=== PATIENT | female | born 1995 | race African-American/Black ===

== ENCOUNTER 2016-11-30 11:11 | Inpatient (IN) | payer MEDICAID ==
[2016-11-30] MEDS ORDERED: RINGERS SOLUTION,LACTATED 1,000 ML IV ONE (11:41)
[2016-11-30] MEDS ORDERED: RINGERS SOLUTION,LACTATED 1,000 ML IV PRN (11:41)
[2016-11-30 11:42] LABS: APPEARANCE,URINE CLOUDY; BILIRUBIN,URINE NEGATIVE (NEGATIVE); GLUCOSE, URINE NEGATIVE (NEGATIVE); KETONES,URINE NEGATIVE (NEGATIVE); LEUKOCYTE ESTERASE,URINE LARGE (NEGATIVE); NITRITE,URINE NEGATIVE (NEGATIVE); PROTEIN,URINE NEGATIVE (NEGATIVE); URINE SPECIFIC GRAVITY 1.011; UROBILINOGEN,URINE NEGATIVE mg/dL (<2.0)
--- NOTE | 2016-11-30 12:01 | L&D Flow Sheet ---
LD Flowsheet Datetime Report Generated by CPN: 11/30/2016 12:00 Datetime: 11/30/2016 11:58 Patient Care IV/Blood Work: IV Started; IV Bolus Started (Leroy Sky, RN) Patient Care Comments: LR; 18G L FA good blood return, pt tolerated well. (Leroy Spanglert, RN) Datetime: 11/30/2016 11:56 Patient Position/Activity: Left Tilt (Leroy Jose Daniel, RN) Datetime: 11/30/2016 11:53 Patient Care IV/Blood Work: Labs Drawn (Leroy Jose Daniel, RN) Datetime: 11/30/2016 11:43 Vital Signs NBP Sys/Francesca/Mean (mmHg): 132 (QS system process) : 82 (QS system process) : 101 (QS system process) Pulse: 82 (QS system process) Datetime: 11/30/2016 11:29 Vaginal Exam Dilatation (cm): 4.0 (Leroy Jose Daniel, RN) Effacement (%): 50 (Leroy Jose Daniel, RN) Station: -3 (Leroy Jose Daniel, RN) Exam by: S Jose Daniel RN (Leroy Jose Daniel, RN) Communication Communication Comments: H Sandeep CNM reviewed strip, notified of pt hx, labs, ve, vs. States to watch pt for an hour and recheck pt (Leroy Jose Daniel, RN) Datetime: 11/30/2016 11:27 Vital Signs NBP Sys/Francesca/Mean (mmHg): 138 (QS system process) : 80 (QS system process) : 104 (QS system process) Pulse: 102 (QS system process)
[2016-11-30 12:05] LABS: URINE BARBITURATES SCREEN NEGATIVE; URINE METHADONE SCREEN NEGATIVE; URINE OPIATES LOW NEGATIVE; URINE PHENCYCLIDINE SCREEN NEGATIVE
[2016-11-30 12:15] LABS: ABSOLUTE EOSINOPHILS # (AUTO) 0.2 10^3/uL (0.0-0.6); ABSOLUTE LYMPHOCYTES (AUTO) 1.8 10^3/uL (0.5-4.7); ABSOLUTE MONOCYTES (AUTO) 0.6 10^3/uL (0.1-1.4); ABSOLUTE NEUT (AUTO) 4.4 10^3/uL (1.7-8.2); BASOPHILS % (AUTO) 0.2 % (0-2); EOSINOPHILS % (AUTO) 2.2 % (0-6); HEMATOCRIT 33.9 % (36.0-47.0); HEMOGLOBIN 11.1 g/dL (12.0-15.5); HGB HCT DIFFERENCE -0.6; LYMPHOCYTES % (AUTO) 25.3 % (13-45); MEAN CORPUSCULAR HGB CONC 32.8 g/dL (32.0-36.0); MEAN CORPUSCULAR VOLUME 86 fl (80-97); MONOCYTES % (AUTO) 8.7 % (3-13); RED BLOOD COUNT 3.96 10^6/uL (3.72-5.28); RED CELL DISTRIBUTION WIDTH 13.7 % (11.5-14.0); SEGMENTED NEUTROPHILS % (AUTO) 63.6 % (42-78)
[2016-11-30] MEDS ORDERED: FENTANYL/BUPIVACAINE/NS/PF 0 MCG/0 ML RTUINJ EPI ONE (12:32)
[2016-11-30] MEDS ORDERED: EPHEDRINE SULFATE INJ 50 MG/1 ML AMPULE ONE (12:32)
[2016-11-30] MEDS ORDERED: BUPIVACAINE HCL 0.25 % INJ/PF (2.5 MG/1 ML) 30 ML VIAL ONE (12:33)
--- NOTE | 2016-11-30 14:01 | L&D Flow Sheet ---
LD Flowsheet Datetime Report Generated by CPN: 11/30/2016 14:00 Datetime: 11/30/2016 13:59 NBP Sys/Francesca/Mean (mmHg): 127 (QS system process) : 61 (QS system process) : 87 (QS system process) Pulse: 88 (QS system process) Datetime: 11/30/2016 13:45 Stage of : Recovery (Leroy Sky, RN) Respirations: 16 (Leroy Sky RN) Pain Scale: 1 (Leroy Jose Daniel, RN) Pain Presence: Constant (Leroy Ingiuezfleet, RN) Pain Type: Ache (Leroy Jose Daniel, RN) Pain Location: Abdomen (Leroy Jose Daniel, RN) Pain Relief Measures: Comfort Measures (Leroy Jose Daniel, RN) Datetime: 11/30/2016 13:44 NBP Sys/Francesca/Mean (mmHg): 132 (QS system process) : 68 (QS system process) : 93 (QS system process) Pulse: 88 (QS system process) Datetime: 11/30/2016 13:27 NBP Sys/Francesca/Mean (mmHg): 141 (QS system process) : 69 (QS system process) : 96 (QS system process) Pulse: 106 (QS system process) Datetime: 11/30/2016 13:25 NBP Sys/Francesca/Mean (mmHg): 129 (QS system process) : 69 (QS system process) : 95 (QS system process) Pulse: 93 (QS system process) Datetime: 11/30/2016 13:17 Dilatation (cm): 10.0 (Leroy Sky RN) Effacement (%): 100 (Leroy Sky RN) Station: 1 (Leroy Sky RN) Exam by: Deanna Hopkins (Leroy Sky RN) Pushing: Coached on Pushing; Urge to Push (Leroy Sky RN) Pushing Position: Pushing with Contractions (Leroy Sky RN) Communication: RN at Bedside; Provider at Bedside (Leroy Sky RN) Communication Comments: RN and Deanna Hopkins CNM to remain present at bedside throughout second stage continuously monitoring heart rate while pt pushes with contractions (Leroy Sky RN) Datetime: 11/30/2016 13:15 Pushing: Urge to Push (Leroy Bautistaeet, RN) Preparation for Delivery: Setup for Delivery (Leroy Iniguezfleet, RN) Datetime: 11/30/2016 13:13 Dilatation (cm): 8.0 (Leroy Spanglert, RN) Effacement (%): 90 (Leroy Sky, RN) Station: -1 (Leroy Sky, RN) Exam by: Deanna Hopkins CNAdelia (Leroy Sky, RN) Membrane Status: Ruptured (Leroy Sky, RN) Membranes Rupture Method: Artificial (Leroy Iniguezfleet, RN) Amniotic Fluid Color: Clear (Leroy Iniguezfleet, RN) Amniotic Fluid Amount: Small (Leroy Jose Daniel, RN) Datetime: 11/30/2016 13:12 NBP Sys/Francesca/Mean (mmHg): 141 (QS system process) : 85 (QS system process) : 106 (QS system process) Pulse: 102 (QS system process) Communication Comments: H Sandeep at bedside (Leroy Sky, RN) Datetime: 11/30/2016 13:11 Communication Comments: H Sandeep CNM at bedside, remains at bedside (Leroy Sky, RN) Datetime: 11/30/2016 13:00 Pulse: 88 (QS system process) SpO2 (%): 79 (QS system process) Monitor Mode: External; Palpation (Leroy Sky RN) Frequency (min): 2-3 (Leroy Sky RN) Quality: Moderate to Strong (Leroy Sky RN) Duration (sec): 60-80 (Leroy Sky RN) Duration Criteria: Less than Two 120 Second Contractions (Leroy Sky RN) Pattern: Normal: <= 5 Contractions in 10 Minutes (Leroy Sky RN) Resting Tone (Palpate): Relaxed (Leroy Sky, RN) Monitor Mode: External US (Leroy Sky, RN) FHR Baseline Rate : 135 (Leroy Spanglert, RN) Variability: Moderate 6-25 bpm (Leroy Iniguezfleet, RN) Accelerations: 15X15 (Leroy Iniguezfleet, RN) Decelerations: Early; Late (Leroy Spanglert, RN) Communication: RN at Bedside; RN Reviewed Strip (Leroy Sky RN) Datetime: 11/30/2016 12:59 Communication Comments: Dr Griffin at bedside to offer pt epidural; pt declines. (Leroy Jose Daniel, RN) Datetime: 11/30/2016 12:57 NBP Sys/Francesca/Mean (mmHg): 139 (QS system process) : 79 (QS system process) : 103 (QS system process) Pulse: 103 (QS system process) Datetime: 11/30/2016 12:48 I/O Interventions: Up to BR (Leroy Jose Daniel, RN) Datetime: 11/30/2016 12:45 Monitor Mode: External; Palpation (Leroy Bautistaeet, RN) Frequency (min): 2-4 (Leroy Jose Daniel, RN) Quality: Moderate (Leroy Jose Daniel, RN) Duration (sec): 60-70 (Leroy Jose Daniel, RN) Duration Criteria: Less than Two 120 Second Contractions (Leroy Jose Daniel, RN) Pattern: Normal: <= 5 Contractions in 10 Minutes (Leroy Jose Daniel, RN) Resting Tone (Palpate): Relaxed (Leroy Jose Daniel, RN) Monitor Mode: External US (Leroy Bautistaeet, RN) FHR Baseline Rate : 135 (Leroy Jose Daniel, RN) Variability: Moderate 6-25 bpm (Leroy Jose Daniel, RN) Accelerations: 15X15 (Leroy Jose Daniel, RN) Decelerations: None (Leroy Jose Daniel, RN) Communication: RN at Bedside; RN Reviewed Strip (Leroy Spanglert, RN) Datetime: 11/30/2016 12:43 Dilatation (cm): 8.0 (Elyse [place], RNC) Effacement (%): 90 (Elyse [place], RNC) Station: -2 (Elyse [place], RNC) Exam by: Julia Sky (Elyse [place], RNC) Vaginal Bleeding: Normal Show (Elyse [place], RNC) Cervix, Consistency: Soft (Elyse [place], RNC) Cervix, Position: Anterior ([facility], RNC) Communication: H Sandeep CNM states pt may have epidural now (Leroy Sky ) Datetime: 11/30/2016 12:42 NBP Sys/Farncesca/Mean (mmHg): 136 (QS system process) : 84 (QS system process) : 104 (QS system process) Pulse: 94 (QS system process) Datetime: 11/30/2016 12:30 Monitor Mode: External; Palpation (Leroy Sky RN) Frequency (min): 3-6 (Leroy Sky RN) Frequency (min): 50-70 (Leroy Sky RN) Quality: Moderate to Strong (Leroy Sky RN) Duration (sec): 50-70 (Leroy Sky RN) Resting Tone (Palpate): Relaxed (Leroy Sky RN) Monitor Mode: External US (Leroy Sky RN) FHR Baseline Rate : 135 (Leroy Sky RN) Variability: Moderate 6-25 bpm (Leroy Sky RN) Accelerations: 15X15 (Leroy Sky RN) Decelerations: None (Leroy Sky RN) Communication: RN at Bedside; RN Reviewed Strip (Leroy Sky RN) Datetime: 11/30/2016 12:27 Pain Scale: 5 (Leroy Sky RN) Pain Type: Contraction (Leroy Sky RN) Pain Coping: Requesting Pain Medication or Epidural (Leroy Sky RN) Dilatation (cm): 6.0 (Leroy Sky RN) Effacement (%): 90 (Leroy Sky RN) Station: -2 (Leroy Sky RN) Exam by: Julia Sky RN (Leroy Sky RN) IV/Blood Work: IV Bolus Started (Annotations: 2nd bag LR for epidural hung) (Leroy Sky RN) Datetime: 11/30/2016 12:15 Monitor Mode: External (Bonnie Iyer RN) Frequency (min): 2.5-4 (Bonnie Iyer RN) Quality: Moderate to Strong (Bonnie Iyer RN) Duration (sec): 70-120 (Bonnie Iyer RN) Resting Tone (Palpate): Relaxed (Bonnie Iyer RN) Monitor Mode: External US (Bonnie Iyer RN) FHR Baseline Rate : 130 (Bonnie Iyer RN) Variability: Moderate 6-25 bpm (Bonnie Iyer, RN) Accelerations: 15X15 (Bonnie Iyer, RN) Decelerations: None (Bonnie Iyer RN) Datetime: 11/30/2016 12:13 NBP Sys/Francesca/Mean (mmHg): 144 (QS system process) : 92 (QS system process) : 111 (QS system process) Pulse: 116 (QS system process) I/O Interventions: Clear Liquids Given (Leroy Sky, RN) Datetime: 11/30/2016 12:11 Patient Position/Activity: Right Lateral (Leroy Sky, RN) Datetime: 11/30/2016 12:07 NBP Sys/Francesca/Mean (mmHg): 133 (QS system process) : 75 (QS system process) : 97 (QS system process) Pulse: 81 (QS system process) Datetime: 11/30/2016 12:03 Procedures: Consents Signed (Leroy Sky RN) Communication Comments: Deanna Hopkins CNAdelia states pt may have epidural when desired. (Leroy Sky RN) Datetime: 11/30/2016 12:00 Monitor Mode: External (Bonnie Iyer RN) Frequency (min): 1.5-3.5 (Bonnie Iyer RN) Quality: Moderate to Strong (Bonnie Iyer RN) Duration (sec): 60-90 (Bonnie Iyer RN) Resting Tone (Palpate): Relaxed (Bonnie Iyer RN) Monitor Mode: External US (Bonnie Iyer RN) FHR Baseline Rate : 125 (Bonnie Iyer RN) Variability: Moderate 6-25 bpm (Bonnie Iyer RN) Accelerations: 15X15 (Bonnie Iyer RN) Decelerations: None (Bonnie Iyer RN)
[2016-11-30] MEDS ORDERED: MEASLES,MUMPS&RUBELLA VACC/PF 0.5 ML VIAL SUBCUT PRN (14:07)
[2016-11-30] MEDS ORDERED: OXYTOCIN/NORMAL SALINE 1,000 ML IV PRN (14:07)
[2016-11-30] MEDS ORDERED: ZOLPIDEM TARTRATE 5 MG TABLET PO PRN (14:07)
[2016-11-30] MEDS ORDERED: BENZOCAINE/MENTHOL AEROSOL SPRAY 56 ML TOP PRN (14:07)
[2016-11-30] MEDS ORDERED: DIPH/PERTUSS(ACELL)/TETANUS VAC/PF 0.5 ML SYR (>=10YO) IM PRN (14:07)
[2016-11-30] MEDS ORDERED: ACETAMINOPHEN WITH CODEINE #3 TABLET PO PRN ×2 (14:07)
[2016-11-30] MEDS ORDERED: DIBUCAINE 1% OINTMENT 28 GM TP PRN (14:07)
[2016-11-30] MEDS ORDERED: OXYTOCIN/NORMAL SALINE 20 UNIT/1,000 ML RTUINJ ONE (14:12)
--- NOTE | 2016-11-30 14:48 | Delivery Summary ---
Del Sum A-C Datetime Report Generated by CPN: 11/30/2016 14:47 ADMISSION DATA Chief Complaint: Uterine Contractions Indication for Induction: Not Applicable Admission Impression: Term, Intrauterine ; Active Labor; Intact Membranes Admit Provider Comments: ctx all mornign was 2 in the office. See record for complete medical/surgical/ob hx. GBS negative 3 previous full term vaginal deliveries Admit to Labor and Delivery may have epdiural Anticipate DELIVERY PERSONNEL Delivery Doctor:: Maricarmen Hopkins CNM Nurse Fitting Room Inspector Certified:: Maricarmen Hopkins CNM Labor and Delivery Nurse:: Leroy Sky RNphotographer's model Nurse:: KOFI Layne Freight Representative/PLASTIC SURGERY SPECIALIST: [facility] Additional Personnel: : Bonnie Iyer RN MATERNAL INFORMATION Delivery Anesthesia: None Medications After Delivery: Pitocin Bolus-Please Comment Meds After Delivery Comment: pitocin 20 units in 1000 ml NSS open for bolus Estimated Blood Loss (ml): 200 Maternal Complications: Precipitous Labor (<3hrs) Provider Comments: of viable male infant over intact perineum, head, shoulders and body delivered without difficulty. Infant with spontaneous cry and respirations, cord clamped X 2, cut free after 2 mintue delay. Spontaneous delivery of intact placenta via erika mechanism, 3 VC. Hemostasis acheived with external fundal massage and IV pitocin. Vagina and perineum inspected, no lacerations noted. Mother and in stable condition, routine pp care. LABOR SUMMARY EDC: 12/08/2016 00:00 No. Babies in Womb: 1 Attempted: No Labor Anesthesia: None LABOR INFORMATION Reason for Induction: Not Applicable Onset of Labor: 11/30/2016 10:00 Complete Dilatation: 11/30/2016 13:17 Oxytocin: N/A Group B Beta Strep: Negative Steroids Given: None Reason Steroids Not Administered: Not Applicable MEMBRANES Membranes Rupture Method: Artificial Rupture of Membranes: 11/30/2016 13:13 Length of Rupture (hr): 0.13 Amniotic Fluid Color: Clear Amniotic Fluid Amount: Small Amniotic Fluid Odor: Normal STAGES OF LABOR Stage 1 hr: 3 Stage 1 min: 17 Stage 2 hr: 0 Stage 2 min: 4 Stage 3 hr: 0 Stage 3 min: 14 Total Time in Labor hr: 3 Total Time in Labor min: 35 VAGINAL DELIVERY Episiotomy: None Laceration Extension: N/A Laceration Type: None Laceration Repair: No Laceration Repair Note: n/a Sponge Count Correct: N/A CSECTION DELIVERY Primary Indication: N/A Secondary Indication: N/A CSection Incidence: N/A Labor: N/A Elective: N/A CSection Incision: N/A BABY A INFORMATION Infant Delivery Date/Time: 11/30/2016 13:21 Method of Delivery: Vaginal Born in Route : No : N/A Forceps: N/A Vacuum Extraction: N/A Shoulder Dystocia : No PRESENTATION/POSITION BABY A Presentation: Cephalic Cephalic Presentation: Vertex Vertex Position: Left Occipital Anterior Breech Presentation: N/A PLACENTA INFORMATION BABY A Placenta Delivery Time : 11/30/2016 13:35 Placenta Method of Delivery: Spontaneous Placenta Status: Delivered SCORES BABY A Heart Rate 1 min: >100 bpm Resp Effort 1 min: Good Cry Reflex Irritability 1 min: Cough or Sneeze or Pulls Away Muscle Tone 1 min: Active Motion Color 1 min: Body [place], Extremities Blue Resuscitation Effort 1 min: Tactile Stimulation SCORE 1 MIN: 9 Heart Rate 5 min: >100 bpm Resp Effort 5 min: Good Cry Reflex Irritability 5 min: Cough or Sneeze or Pulls Away Muscle Tone 5 min: Active Motion Color 5 min: Body [place], Extremities Blue Resuscitation Effort 5 min: N/A SCORE 5 MIN: 9 Resuscitation Effort 10 min: N/A INFANT INFORMATION BABY A Gestational Age at Delivery: 38.6 Gestational Status: Early Term- 37- 38.6 Weeks Infant Outcome : Liveborn Infant Condition : Stable Infant Sex: Male IDENTIFICATION BABY A Infant Verification Date/Time: 11/30/2016 13:50 ID Band Number: [id number] Mother's Name Verified: Yes Infant RN Verifying Infant: Baljit Jaylon RN and Norma Norris RN WEIGHT/LENGTH BABY A Birthweight (gm): 3370 Weight (lb): 7 Infant Weight (oz): 7 Length (in): 19.00 Infant Length (cm): 48.26 CORD INFORMATION BABY A No. Cord Vessels: 3 Nuchal Cord : N/A Cord Blood Taken: Yes-For Eval (Mom's Blood Type - or O+) Infant Suction: Mouth; Nose ASSESSMENT BABY A Complications: None Physical Findings at Delivery: Within Normal Limits Infant Respirations: Appears Normal Skin to Skin: Yes Skin to Skin Time (min): 60 Neck Band Operator/ALS Called : No Care By: Phoebe Ricardott Rn Transferred To: Remains with Mother BABY B INFORMATION : N/A SIGNATURES Assignment: Angi Smith MD Signature: with User ID: [email or web address] : with User ID: [email or web address]
--- NOTE | 2016-11-30 15:39 | Admission Physical ---
Datetime Report Generated by CPN: 11/30/2016 15:38 CURRENT ADMISSION Hx Assessment: The History has been Reviewed and is Current Chief Complaint: Uterine Contractions Indication for Induction: Not Applicable Admit Plan: Admit to Unit; Initiate Labor Protocol ALLERGIES Medication Allergies: No Medication Allergies: No Known Allergies (11/30/2016) Latex: Latex Allergies Environmental Allergies: seasonal OBSTETRICAL HISTORY EDC: 12/08/2016 00:00 : 4 Para: 3 Term: 3 : 0 SAB: 0 IAB: 0 Ectopic: 0 Livin Cesareans: 0 VBACs: 0 Multiple Births: 0 Gestational Diabetes: No Rh Sensitization: No Incompetent Cervix: No ZOIE: No Infertility: No ART Treatment: No Uterine Anomaly: No IUGR: No Hx Previous C/S: No Macrosomia: No Hx Loss/Stillborn: No PIH: No Hx : No Placenta Previa/Abruption: No Depression/PP Depression: No PTL/PROM: No Post Hemorrhage: No Current Procedures: Ultrasound; NST Obstetrical History Comments: G1 08/25/12 39.1 M [facility] G2 04/21/14 F F G3 07/30/15 F G4 Current SEE RECORDS Alcohol: No Marijuana : No Cocaine: No Other Illicit Drugs: No Cigarettes: Never Smoker. [id number] MEDICAL HISTORY Diabetes: No Blood Transfusion: No Pulmonary Disease (Asthma, TB): No Breast Disease: No Hypertension: No Formation Testing Operator Surgery: No Heart Disease: No Hosp/Surgery: Yes Autoimmune Disorder: No Anesthetic Complications: No Kidney Disease: No Abnormal Pap Smear: Yes Neuro/Epilepsy: No Psychiatric Disorders: Yes Other Medical Diseases: No Hepatitis/Liver Disease: No Significant Family History: No Varicosities/Phlebitis: No Trauma/Violence : No Thyroid Dysfunction: No Medical History Comments: PICA INFECTIOUS HISTORY Gonorrhea: No Genital Herpes: No Chlamydia: No Tuberculosis: No Syphilis: No Hepatitis: No HIV/AIDS Exposure: No Rash or Viral Illness: No HPV: No PHYSICAL EXAM General: Normal HEENT: Normal Neurologic: Normal Thyroid: Deferred Heart: Normal Lungs: Normal Breast: Normal Back: Normal Abdomen: Normal Genitourinary Exam: Normal Extremities: Normal DTRs: Normal Pelvic Type: Adequate Vital Signs: Reviewed VAGINAL EXAM Dilatation: 4 Effacement: 50 Station: -3 Contraction Comments: 2-4 MEMBRANES Membranes: Intact FETUS A EGA: 38.6 Monitoring: External US FHR- Baseline: 125 Variability: Moderate 6-25bpm Accelerations: 15X15 Decelerations: None FHR Category: Category I Presentation: Vertex Admit Comment: ctx all mornign was 2 in the office. See record for complete medical/surgical/ob hx. GBS negative 3 previous full term vaginal deliveries Admit to Labor and Delivery may have epdiural Anticipate PLANS FOR LABOR AND DELIVERY Labor and Delivery: None Pain Management: Epidural Feeding Preference: Formula Benefit of Breast Feed Discussed: Yes Circumcision: Yes INFORMED CONSENT Assignment: Angi Smith MD Signature: with User ID: [email or web address] : with User ID: [email or web address]
[2016-11-30] MEDS ORDERED: INFLUENZA ADLT QUAD (36MOS+) 2016-17 VAC 0.5 ML SYR IM PRN (17:19)
[2016-11-30] MEDS: FERROUS SULFATE 325 MG TABLET PO SCH (17:47)
[2016-11-30] MEDS: DOCUSATE SODIUM 100 MG CAPSULE PO SCH (17:47)
--- NOTE | 2016-11-30 19:01 | L&D Flow Sheet ---
LD Flowsheet Datetime Report Generated by CPN: 11/30/2016 19:00 Datetime: 11/30/2016 15:00 Pain Pain Scale: 1 (Leroy Sky RN) Pain Presence: Constant (Leroy Sky RN) Pain Type: Ache (Leroy Sky RN) Pain Location: Abdomen (Leroy Sky, STEPHEN) Pain Relief Measures: Comfort Measures (Leroy Sky RN) Datetime: 11/30/2016 14:59 NBP Sys/Francesca/Mean (mmHg): 116 (QS system process) : 68 (QS system process) : 87 (QS system process) Pulse: 90 (QS system process) Datetime: 11/30/2016 14:45 Respirations: 18 (Leroy Jose Daniel, RN) Pain Pain Scale: 1 (Leroy Jose Daniel, RN) Pain Presence: Constant (Leroy Jose Daniel, RN) Pain Type: Ache (Leroy Jose Daniel, RN) Pain Location: Abdomen (Leroy Jose Daniel, RN) Pain Relief Measures: Comfort Measures (Leroy Jose Daniel, RN) Datetime: 11/30/2016 14:44 NBP Sys/Francesca/Mean (mmHg): 124 (QS system process) : 73 (QS system process) : 92 (QS system process) Pulse: 88 (QS system process) Datetime: 11/30/2016 14:30 Respirations: 16 (Leroy Jose Daniel, RN) Temperature (F): 99.0 (Leroy Jose Daniel, RN) Temperature (C): 37.2 (QS system process) Pain Pain Scale: 1 (Leroy Jose Daniel, RN) Pain Presence: Constant (Leroy Jose Daniel, RN) Pain Type: Ache (Leroy Jose Daniel, RN) Pain Location: Abdomen (Leroy Jose Daniel, RN) Pain Relief Measures: Comfort Measures (Leroy Jose Daniel, RN) Datetime: 11/30/2016 14:29 NBP Sys/Francesca/Mean (mmHg): 127 (QS system process) : 68 (QS system process) : 89 (QS system process) Pulse: 94 (QS system process) Datetime: 11/30/2016 14:15 Pain Pain Scale: 1 (Leroy Jose Daniel, RN) Pain Presence: Constant (Leroy Jose Daniel, RN) Pain Type: Ache (Leroy Jose Daniel, RN) Pain Location: Abdomen (Leroy Jose Daniel, RN) Pain Relief Measures: Comfort Measures (Leroy Jose Daniel, RN) Datetime: 11/30/2016 14:14 NBP Sys/Francesca/Mean (mmHg): 124 (QS system process) : 70 (QS system process) : 93 (QS system process) Pulse: 85 (QS system process) Datetime: 11/30/2016 14:00 Respirations: 16 (Leroy Jose Daniel, RN) Pain Pain Scale: 1 (Leroy Jose Daniel, RN) Pain Presence: Constant (Leroy Jose Daniel, RN) Pain Type: Ache (Leroy Jose Daniel, RN) Pain Location: Abdomen (Leroy Jose Daniel, RN) Pain Relief Measures: Comfort Measures (Leroy Jose Daniel, RN) Datetime: 11/30/2016 13:59 NBP Sys/Francesca/Mean (mmHg): 127 (QS system process) : 61 (QS system process) : 87 (QS system process) Pulse: 88 (QS system process) Datetime: 11/30/2016 13:45 Vital Signs Stage of : Recovery (Leroy Jose Daniel, RN) Respirations: 16 (Leroy Jose Daniel, RN) Pain Pain Scale: 1 (Leroy Jose Daniel, RN) Pain Presence: Constant (Leroy Jose Daniel, RN) Pain Type: Ache (Leroy Jose Daniel, RN) Pain Location: Abdomen (Leroy Jose Daniel, RN) Pain Relief Measures: Comfort Measures (Leroy Jose Daniel, RN) Datetime: 11/30/2016 13:44 NBP Sys/Francesca/Mean (mmHg): 132 (QS system process) : 68 (QS system process) : 93 (QS system process) Pulse: 88 (QS system process) Datetime: 11/30/2016 13:27 NBP Sys/Francesca/Mean (mmHg): 141 (QS system process) : 69 (QS system process) : 96 (QS system process) Pulse: 106 (QS system process) Datetime: 11/30/2016 13:25 NBP Sys/Francesca/Mean (mmHg): 129 (QS system process) : 69 (QS system process) : 95 (QS system process) Pulse: 93 (QS system process) Datetime: 11/30/2016 13:20 Assessment A Monitor Mode: External US (Leroy Jose Daniel, RN) Variability: Moderate 6-25 bpm (Leroy Jose Daniel, RN) Accelerations: 15X15 (Leroy Jose Daniel, RN) Decelerations: None (Leroy Jose Daniel, RN) Pushing Position: Pushing with Contractions (Leroy Jose Daniel, RN) Datetime: 11/30/2016 13:17 Vaginal Exam Dilatation (cm): 10.0 (Leroy Spanglert, RN) Effacement (%): 100 (Leroy Sky, RN) Station: 1 (Leroy Spanglert, RN) Exam by: Deanna Hopkins (Leroy Iniguezfleet, RN) Stage 2 Pushing: Coached on Pushing; Urge to Push (Leroy Jose Daniel, RN) Pushing Position: Pushing with Contractions (Leroy Jose Daniel, RN) Communication Communication: RN at Bedside; Provider at Bedside (Leroy Sky RN) Communication Comments: RN and Deanna Hopkins CNAdelia to remain present at bedside throughout second stage continuously monitoring heart rate while pt pushes with contractions (Leroy Jose Daniel, RN) Datetime: 11/30/2016 13:15 Uterine Activity Monitor Mode: External; Palpation (Leroy Jose Daniel, RN) Frequency (min): 2-3 (Leroy Jose Daniel, RN) Quality: Moderate to Strong (Leroy Jose Daniel, RN) Duration (sec): 60-70 (Leroy Jose Daniel, RN) Duration Criteria: Less than Two 120 Second Contractions (Leroy Jose Daniel, RN) Pattern: Normal: <= 5 Contractions in 10 Minutes (Leroy Jose Daniel, RN) Resting Tone (Palpate): Relaxed (Leroy Jose Daniel, RN) Assessment A Monitor Mode: External US (Leroy Jose Daniel, RN) FHR Baseline Rate : 125 (Leroy Jose Daniel, RN) Variability: Moderate 6-25 bpm (Leroy Jose Daniel, RN) Accelerations: 15X15 (Leroy Jose Daniel, RN) Decelerations: None (Leroy Jose Daniel, RN) Stage 2 Pushing: Urge to Push (Leroy Jose Daniel, RN) Preparation for Delivery: Setup for Delivery (Leroy Jose Daniel, RN) Communication Communication: RN at Bedside; RN Reviewed Strip (Leroy Jose Daniel, RN) Datetime: 11/30/2016 13:13 Vaginal Exam Dilatation (cm): 8.0 (Leroy Sky RN) Effacement (%): 90 (Leroy Sky RN) Station: -1 (Leroy Sky RN) Exam by: H Sandeep CNM (Leroy Sky RN) Membrane Status: Ruptured (Leroy Sky RN) Membranes Rupture Method: Artificial (Leroy Sky RN) Amniotic Fluid Color: Clear (Leroy Sky, STEPHEN) Amniotic Fluid Amount: Small (Leroy Sky, STEPHEN) Datetime: 11/30/2016 13:12 NBP Sys/Francesca/Mean (mmHg): 141 (QS system process) : 85 (QS system process) : 106 (QS system process) Pulse: 102 (QS system process) Communication Comments: H Sandeep at bedside (Leroy Sky RN) Datetime: 11/30/2016 13:11 Communication Comments: H Sandeep CNM at bedside, remains at bedside (Leroy Jose Daniel, RN) Datetime: 11/30/2016 13:00 Pulse: 88 (QS system process) SpO2 (%): 79 (QS system process) Uterine Activity Monitor Mode: External; Palpation (Leroy Bautistaeet, RN) Frequency (min): 2-3 (Leroy Bautistaeet, RN) Quality: Moderate to Strong (Leroy Bautistaeet, RN) Duration (sec): 60-80 (Leroy Bautistaeet, RN) Duration Criteria: Less than Two 120 Second Contractions (Leroy Josed Aniel, RN) Pattern: Normal: <= 5 Contractions in 10 Minutes (Leroy Jose Daniel, RN) Resting Tone (Palpate): Relaxed (Leroy Jose Daniel, RN) Assessment A Monitor Mode: External US (Leroy Jos Edaniel, RN) FHR Baseline Rate : 135 (Leroy Jose Daniel, RN) Variability: Moderate 6-25 bpm (Leroy Jose Daniel, RN) Accelerations: 15X15 (Leroy Jose Daniel, RN) Decelerations: Early; Late (Leroy Jose Daniel, RN) Communication Communication: RN at Bedside; RN Reviewed Strip (Leroy Jose Daniel, RN) Datetime: 11/30/2016 12:59 Communication Comments: Dr Gaby at bedside to offer pt epidural; pt declines. (Leroy Jose Daniel, RN) Datetime: 11/30/2016 12:57 NBP Sys/Francesca/Mean (mmHg): 139 (QS system process) : 79 (QS system process) : 103 (QS system process) Pulse: 103 (QS system process) Datetime: 11/30/2016 12:48 I/O Interventions: Up to BR (Leroy Jose Daniel, RN) Datetime: 11/30/2016 12:45 Uterine Activity Monitor Mode: External; Palpation (Leroy Jose Daniel, RN) Frequency (min): 2-4 (Leroy Jose Daniel, RN) Quality: Moderate (Leroy Jose Daniel, RN) Duration (sec): 60-70 (Leroy Jose Daniel, RN) Duration Criteria: Less than Two 120 Second Contractions (Leroy Jose Daniel, RN) Pattern: Normal: <= 5 Contractions in 10 Minutes (Leroy Jose Daniel, RN) Resting Tone (Palpate): Relaxed (Leroy Jose Daniel, RN) Assessment A Monitor Mode: External US (Leroy Jose Daniel, RN) FHR Baseline Rate : 135 (Leroy Jose Daniel, RN) Variability: Moderate 6-25 bpm (Leroy Jose Daniel, RN) Accelerations: 15X15 (Leroy Jose Daniel, RN) Decelerations: None (Leroy Jose Daniel, RN) Communication Communication: RN at Bedside; RN Reviewed Strip (Leroy Jose Daniel, RN) Datetime: 11/30/2016 12:43 Vaginal Exam Dilatation (cm): 8.0 (Elyse Camp, RNC) Effacement (%): 90 (Elyse Camp, RNC) Station: -2 (Elyse Camp, RNC) Exam by: Jose Daniel, S (Elyse Camp, RNC) Vaginal Bleeding: Normal Show (Elyse Camp, RNC) Cervix, Consistency: Soft (Elyse Camp, RNC) Cervix, Position: Anterior (Elyse Camp, RNC) Communication Communication: H Sandeep CNM states pt may have epidural now (Leroy Jose Daniel, RN) Datetime: 11/30/2016 12:42 NBP Sys/Francesca/Mean (mmHg): 136 (QS system process) : 84 (QS system process) : 104 (QS system process) Pulse: 94 (QS system process) Datetime: 11/30/2016 12:30 Uterine Activity Monitor Mode: External; Palpation (Leroy Jose Daniel, RN) Frequency (min): 3-6 (Leroy Jose Daniel, RN) Quality: Moderate to Strong (Leroy Jose Daniel, RN) Duration (sec): 50-70 (Leroy Jose Daniel, RN) Resting Tone (Palpate): Relaxed (Leroy Jose Daniel, RN) Assessment A Monitor Mode: External US (Leroy Jose Daniel, RN) FHR Baseline Rate : 135 (Leroy Jose Daniel, RN) Variability: Moderate 6-25 bpm (Leroy Jose Daniel, RN) Accelerations: 15X15 (Leroy Jose Daniel, RN) Decelerations: None (Leroy Jose Daniel, RN) Communication Communication: RN at Bedside; RN Reviewed Strip (Leroy Spanglert, RN) Datetime: 11/30/2016 12:27 Pain Pain Scale: 5 (Leroy Spanglert, RN) Pain Type: Contraction (Leroy Spanglert, RN) Pain Coping: Requesting Pain Medication or Epidural (Leroy Bautistaeet, RN) Vaginal Exam Dilatation (cm): 6.0 (Leroy Jose Daniel, RN) Effacement (%): 90 (Leroy Jose Daniel, RN) Station: -2 (Leroy Jose Daniel, RN) Exam by: S Jose Daniel RN (Leroy Jose Daniel, RN) Patient Care IV/Blood Work: IV Bolus Started (Annotations: 2nd bag LR for epidural hung) (Leroy Jose Daniel, RN) Datetime: 11/30/2016 12:15 Uterine Activity Monitor Mode: External (Bonnie Marlatt, RN) Frequency (min): 2.5-4 (Bonnie Marlatt, RN) Quality: Moderate to Strong (Bonnie Marlatt, RN) Duration (sec): 70-120 (Bonnie Marlatt, RN) Resting Tone (Palpate): Relaxed (Bonnie Marlatt, RN) Assessment A Monitor Mode: External US (Bonnie Marlatt, RN) FHR Baseline Rate : 130 (Bonnie Marlatt, RN) Variability: Moderate 6-25 bpm (Bonnie Marlatt, RN) Accelerations: 15X15 (Bonnie Marlatt, RN) Decelerations: None (Bonnie Marlatt, RN) Datetime: 11/30/2016 12:13 NBP Sys/Francesca/Mean (mmHg): 144 (QS system process) : 92 (QS system process) : 111 (QS system process) Pulse: 116 (QS system process) I/O Interventions: Clear Liquids Given (Leroy Bautistaeet, RN) Datetime: 11/30/2016 12:11 Patient Position/Activity: Right Lateral (Leroy Iniguezfleet, RN) Datetime: 11/30/2016 12:07 NBP Sys/Francesca/Mean (mmHg): 133 (QS system process) : 75 (QS system process) : 97 (QS system process) Pulse: 81 (QS system process) Datetime: 11/30/2016 12:03 Procedures: Consents Signed (Leroy Iniguezfleet, RN) Communication Comments: H Sandeep CNM states pt may have epidural when desired. (Leroy Bautistaeet, RN) Datetime: 11/30/2016 12:00 Uterine Activity Monitor Mode: External (Bonnie Marlatt, RN) Frequency (min): 1.5-3.5 (Bonnie Iyer, RN) Quality: Moderate to Strong (Bonnie Ricardott, RN) Duration (sec): 60-90 (Bonnie Iyer, RN) Resting Tone (Palpate): Relaxed (Bonnie Marlatt, RN) Assessment A Monitor Mode: External US (Bonnie Marlatt, RN) FHR Baseline Rate : 125 (Bonnie Marlatt, RN) Variability: Moderate 6-25 bpm (Bonnie Marlatt, RN) Accelerations: 15X15 (Bonnie Marlatt, RN) Decelerations: None (Bonnie Marlatt, RN) Datetime: 11/30/2016 11:58 Patient Care IV/Blood Work: IV Started; IV Bolus Started (Leroy Sky, RN) Patient Care Comments: LR; 18G L FA good blood return, pt tolerated well. (Leroy Bautistaeet, RN) Datetime: 11/30/2016 11:56 Patient Position/Activity: Left Tilt (Leroy Jose Daniel, RN) Datetime: 11/30/2016 11:53 Patient Care IV/Blood Work: Labs Drawn (Leroy Jose Daniel, RN) Datetime: 11/30/2016 11:45 Uterine Activity Monitor Mode: External; Palpation (Bonnie Marlatt, RN) Frequency (min): 2-3 (Bonnie Marlatt, RN) Quality: Moderate (Bonnie Marlatt, RN) Duration (sec): 60-120 (Bonnie Marlatt, RN) Resting Tone (Palpate): Relaxed (Bonnie Marlatt, RN) Assessment A Monitor Mode: External US (Bonnie Marlatt, RN) FHR Baseline Rate : 130 (Bonnie Marlatt, RN) Variability: Moderate 6-25 bpm (Bonnie Marlatt, RN) Decelerations: None (Bonnie Marlatt, RN) Datetime: 11/30/2016 11:43 NBP Sys/Francesca/Mean (mmHg): 132 (QS system process) : 82 (QS system process) : 101 (QS system process) Pulse: 82 (QS system process) Datetime: 11/30/2016 11:29 Vaginal Exam Dilatation (cm): 4.0 (Leroy Sky RN) Effacement (%): 50 (Leroy Sky RN) Station: -3 (Leroy Sky RN) Exam by: Julia Sky RN (Leroy Sky RN) Communication Comments: H Sandeep CNM reviewed strip, notified of pt hx, labs, ve, vs. States to watch pt for an hour and recheck pt (Leroy Sky RN) Datetime: 11/30/2016 11:27 NBP Sys/Francesca/Mean (mmHg): 138 (QS system process) : 80 (QS system process) : 104 (QS system process) Pulse: 102 (QS system process) Datetime: 11/30/2016 11:20 Membranes Ruptured Date/Time: 11/30/2016 13:13 (Leroy Sky RN) Amniotic Fluid Odor: Normal (Leroy Sky RN)
[2016-11-30] MEDS: IBUPROFEN 800 MG TABLET PO SCH (21:24)
--- NOTE | 2016-12-01 06:02 | L&D General Admission ---
General Admit Datetime Report Generated by CPN: 12/01/2016 06:00 INFORMATION Patient Age: 21 (11/30/2016 11:11:QS system process) EDC: 12/08/2016 00:00 (11/30/2016 11:20:Mely Pisano RN) : 4 (11/30/2016 11:20:Mely Pisano RN) Para: 3 (11/30/2016 11:20:Mely Pisano RN) Term: 3 (11/30/2016 11:20:KOFI Layne) : 0 (11/30/2016 11:20:KOFI Layne) Spontaneous Abortions: 0 (11/30/2016 11:20:KOFI Layne) Induced Abortions: 0 (11/30/2016 11:20:KOFI Layne) Livin (11/30/2016 11:20:Mely Pisano RN) Cesareans: 0 (11/30/2016 11:20:KOFI Layne) VBACs: 0 (11/30/2016 11:20:KOFI Layne) Ectopic: 0 (11/30/2016 11:20:KOFI Layne) Multiple Births: 0 (11/30/2016 11:20:KOFI Layne) Baby, Number in Womb: 1 (11/30/2016 11:20:KOFI Layne) CARE Primary Geography Head: [employer] [facility] (11/30/2016 11:20:Mely Pisano RN) Prepregnancy Weight (lb): 184 (11/30/2016 11:20:Leroy Sky RN) Prepregnancy Weight (kg): 83.6 (11/30/2016 11:20:QS system process) Height (in): 65 (11/30/2016 11:28:QS system process) ALLERGIES Medication Allergy: No (11/30/2016 11:20:Mely Pisano RN) Medication Allergies: No Known Allergies (11/30/2016) (11/30/2016 11:28:QS system process) Latex Allergy: Latex Allergies (11/30/2016 11:20:Mely Pisano RN) Environmental Allergies: seasonal (11/30/2016 11:20:Mely Pisano RN) COMMUNICATION Primary Language: Serbian (11/30/2016 11:20:Mely Pisano RN) Medical Tx Preferred Language: Serbian (11/30/2016 11:20:Mely Pisano RN) Communication Barrier(s): None (11/30/2016 11:20:Leroy Sky RN) DEMOGRAPHICS Address: [address] [place] [address], [address] [address] (11/30/2016 11:11:QS system process) Zipcode: [address] (11/30/2016 11:11:QS system process) Home (11/30/2016 11:11:QS system process) Work (11/30/2016 11:11:QS system process) N: [phone] (11/30/2016 11:11:QS system process) Next of Kin Name: MARK TA (11/30/2016 11:11:QS system process) Next of Kin (11/30/2016 11:11:QS system process) Next of Kin Relationship: OR (11/30/2016 11:11:QS system process) Date of : 1995 (11/30/2016 11:11:QS system process) Marital Status: (11/30/2016 11:11:QS system process) Sex: Female (11/30/2016 11:11:QS system process) Occupation: Homemaker (11/30/2016 11:20:Leroy Sky RN) Race: (11/30/2016 11:11:QS system process) Ethnicity: Non- or (11/30/2016 11:11:QS system process) Mu-Ism: None (11/30/2016 11:11:QS system process) Education: 12 (11/30/2016 11:20:Leroy Sky RN) FOB Involved: Yes (11/30/2016 11:20:Leroy Sky RN) Father of Baby Name: Mark Ta (11/30/2016 11:20:Leroy Sky RN) Person Auth to release pt PHI: Mark Ta (11/30/2016 11:20:Leroy Sky RN) DRUG AND ALCOHOL USE Alcohol: No (11/30/2016 11:20:Leroy Sky RN) Cigarettes: Never Smoker. [id number] (11/30/2016 11:20:Leroy Sky RN) Marijuana: No (11/30/2016 11:20:Leroy Sky RN) Cocaine: No (11/30/2016 11:20:Leroy Sky RN) Other Illicit Drugs: No (11/30/2016 11:20:Leroy Sky RN) VACCINE HISTORY Influenza Vaccine: No (11/30/2016 11:20:Mely Pisano RN) Envelope Patternmaker: Other (11/30/2016 11:20:Leroy Sky RN) Feeding Preference: Formula (11/30/2016 11:20:Leroy Sky RN) Benefit of Breast Feed Discussed: Yes (11/30/2016 11:20:Leroy Sky RN) Circumcision: Yes (11/30/2016 11:20:Leroy Sky RN) Classes Attended: Yes (11/30/2016 11:20:Leroy Sky RN) Tubal Ligation: No (11/30/2016 11:20:Leroy Sky RN) Tubal Authorization Signed: N/A (11/30/2016 11:20:Leroy Sky RN) Consent: N/A (11/30/2016 11:20:Leroy Sky RN) Consent Signed: N/A (11/30/2016 11:20:Leroy Sky RN) Pain Management Plans: Epidural (11/30/2016 11:20:Leroy Sky RN) Plans for Labor and Delivery: None (11/30/2016 11:20:Leroy Sky RN) Support Person: Mark (11/30/2016 11:20:Leroy Sky RN) Support Person Relationship: (11/30/2016 11:20:Leroy Sky RN) Cultural/Spritual Practice: No (11/30/2016 11:20:Leroy Sky RN) Spir/Cult Dietary Needs: No (11/30/2016 11:20:Leroy Sky RN) LIVING SITUATION/DISCHARGE PLAN Living Arrangements: Apartment (11/30/2016 11:20:Leroy Sky RN) Adequate Access to:: Electric; Heat; Refrigeration; Plumbing/Running water; Phone; Transportation (11/30/2016 11:20:Leroy Sky RN) WIC Program: No (11/30/2016 11:20:Leroy Sky RN) Discharge Card Scraper Person: Mark (11/30/2016 11:20:Leroy Sky RN) Person to Help after Discharge: Mark (11/30/2016 11:20:Leroy Sky RN) Currently Using Commun Resources: Yes (11/30/2016 11:20:Leroy Sky RN) Specify Current Resource Used: WIC, Medicaid (11/30/2016 11:20:Leroy Sky RN) Outside Agency/Supervisor [employer]: No (11/30/2016 11:20:Leroy Sky RN) Car Seat for Discharge: Yes (11/30/2016 11:20:Leroy Sky RN) Adoption Requested: No (11/30/2016 11:20:Leroy Sky RN) Pt Contact w/infant Post : N/A (11/30/2016 11:20:Leroy Sky RN) LABS Blood Type: O Positive (11/30/2016 11:20:Richelle Baker RN) Hemoglobin: 11.1 L (11/30/2016 11:50:QS system process) Hematocrit: 33.9 L (11/30/2016 11:50:QS system process) MCV: 86 (11/30/2016 11:50:QS system process) Group Beta Strep: Negative (11/30/2016 11:20:Leroy Sky RN) Gonorrhea: Negative (11/30/2016 11:20:Leroy Sky RN) Chlamydia: Negative (11/30/2016 11:20:Leroy Sky RN) RPR/VDRL: Nonreactive (11/30/2016 11:20:Leroy Sky RN) HIV Exposure Test: Negative (11/30/2016 11:20:Leroy Sky RN) Hepatitis B: Negative (11/30/2016 11:20:Leroy Sky RN) Rubella: Immune (11/30/2016 11:20:Leroy Sky RN) OB/PREVIOUS HISTORY Previous Procedures: Ultrasound; NST (11/30/2016 11:20:Leroy Sky RN) Current Procedures: Ultrasound; NST (11/30/2016 11:20:Leroy Sky RN) History of Previous : No (11/30/2016 11:20:Leroy Sky RN) History of Gestational Diabetes: No (11/30/2016 11:20:Leroy Sky RN) History of PIH: No (11/30/2016 11:20:Leroy Sky RN) History of Incompetent Cervix: No (11/30/2016 11:20:Leroy Sky RN) History of Placenta Previa/Abrup: No (11/30/2016 11:20:Leroy Sky RN) History of Macrosomia: No (11/30/2016 11:20:Leroy Sky RN) History of IUGR: No (11/30/2016 11:20:Leroy Sky RN) History of Hemorrhage: No (11/30/2016 11:20:Leroy Sky RN) History of Loss/Stillborn: No (11/30/2016 11:20:Leroy Sky RN) History of : No (11/30/2016 11:20:Leroy Sky RN) History of D (Rh) Sensitization: No (11/30/2016 11:20:Leroy Sky RN) History Recurrent Loss/Stillborn: No (11/30/2016 11:20:Leroy Sky RN) History Depression/PP Depression: No (11/30/2016 11:20:Leroy Sky RN) History of Uterine Anomaly/ZOIE: No (11/30/2016 11:20:Leroy Sky RN) History of Infertility: No (11/30/2016 11:20:Leroy Sky RN) History of ART Treatment: No (11/30/2016 11:20:Leroy Sky RN) History of ZOIE: No (11/30/2016 11:20:Leroy Sky RN) Comments Obstetrical History: G1 08/25/12 39.1 M [facility] G2 04/21/14 F F G3 07/30/15 F G4 Current (11/30/2016 11:20:Leroy Sky RN) MEDICAL HISTORY Med Hx Diabetes: No (11/30/2016 11:20:Leroy Sky RN) Med Hx Hypertension: No (11/30/2016 11:20:Leroy Sky RN) Med Hx Heart Disease: No (11/30/2016 11:20:Leroy Sky RN) Med Hx Autoimmune Disorder: No (11/30/2016 11:20:Leroy Sky RN) Med Hx Kidney Disease/UTI: No (11/30/2016 11:20:Leroy Sky RN) Med Hx Neurologic/Epilepsy: No (11/30/2016 11:20:Leroy Sky RN) Med Hx Psychiatric Disorders: Yes (11/30/2016 11:20:Leroy Sky RN) Med Hx Hepatitis/Liver Disease: No (11/30/2016 11:20:Leroy Sky RN) Med Hx Varicosities/Phlebitis: No (11/30/2016 11:20:Leroy Sky RN) Med Hx Thyroid Dysfunction: No (11/30/2016 11:20:Leroy Sky RN) Med Hx Trauma/Violence: No (11/30/2016 11:20:Leroy Sky RN) Med Hx Blood Transfusion: No (11/30/2016 11:20:Leroy Sky RN) Med Hx Pulmonary (Asthma,TB): No (11/30/2016 11:20:Leroy Sky RN) Med Hx Breast: No (11/30/2016 11:20:Leroy Sky RN) Med Hx B[employer] MANAGER Surgery: No (11/30/2016 11:20:Leroy Sky RN) Med Hx Hospitalization/Surgery: Yes (11/30/2016 11:20:Mely Pisano RN) Med Hx Anesthetic Complications: No (11/30/2016 11:20:Leroy Sky RN) Med Hx Abnormal Pap Smear: Yes (11/30/2016 11:20:Leroy Sky RN) Other Medical Diseases: No (11/30/2016 11:20:Leroy Sky RN) Med Hx Significant Family Hx: No (11/30/2016 11:20:Leroy Sky RN) Details of Med/Surg Hx: PICA (11/30/2016 11:20:Mely Pisano RN) INFECTIOUS HISTORY Inf Hx Gonorrhea: No (11/30/2016 11:20:Leroy Sky RN) Inf Hx Chlamydia: No (11/30/2016 11:20:Leroy Sky RN) Inf Hx Syphilis: No (11/30/2016 11:20:Leroy Sky RN) Inf Hx HIV/AIDS: No (11/30/2016 11:20:Leroy Sky RN) Inf Hx Human Papilloma Virus: No (11/30/2016 11:20:Leroy Sky RN) Inf Hx Pt/Partner Genital Herpes: No (11/30/2016 11:20:Leroy Sky RN) Inf Hx Tuberculosis/Exposure: No (11/30/2016 11:20:Leroy Sky RN) Inf Hx Hepatitis B,C: No (11/30/2016 11:20:Leroy Sky RN) Inf Hx Rash or Viral Illness: No (11/30/2016 11:20:Leroy Sky RN) GENETIC HISTORY Gen Hx Age >=35 at PRIYA: No (11/30/2016 11:20:Leroy Sky RN) Gen Hx Thalassemia: No (11/30/2016 11:20:Leroy Sky RN) Gen Hx Congenital Heart Defect: No (11/30/2016 11:20:Leroy Sky RN) Gen Hx Neural Tube Defect: No (11/30/2016 11:20:Leroy Sky RN) Gen Hx Down's Syndrome: No (11/30/2016 11:20:Leroy Sky RN) Gen Hx Bro-Sachs: No (11/30/2016 11:20:Leroy Sky RN) Gen Hx Lio: No (11/30/2016 11:20:Leroy Sky RN) Gen Hx Familial Dysautonomia: No (11/30/2016 11:20:Leroy Sky RN) Gen Hx Sickle Cell Disease/Trait: No (11/30/2016 11:20:Leroy Sky RN) Gen Hx Hemophilia/Blood Disorder: No (11/30/2016 11:20:Leroy Sky RN) Gen Hx Muscular Dystrophy: No (11/30/2016 11:20:Leroy Sky RN) Gen Hx Cystic Fibrosis: No (11/30/2016 11:20:Leroy Sky RN) Gen Hx [place] Chorea: No (11/30/2016 11:20:Leroy Sky RN) Gen Hx Mental Retardation/Autism: No (11/30/2016 11:20:Leroy Sky RN) Gen Hx Tested for Fragile X: No (11/30/2016 11:20:Leroy Sky RN) Gen Hx Other Inher/Chromosomal: No (11/30/2016 11:20:Leroy Sky RN) Gen Hx Maternal Metabolic DO: No (11/30/2016 11:20:Leroy Sky RN) Gen Hx Pt Father or FOB Defect: No (11/30/2016 11:20:Leroy Sky RN) Gen Hx Other Genetic History: No (11/30/2016 11:20:Leroy Sky RN) Gen Hx Drugs/Meds since LMP: No (11/30/2016 11:20:Leroy Sky RN) Gen Hx Medications: PNV, Fiorcet (11/30/2016 11:20:Leroy Sky RN)
--- NOTE | 2016-12-01 06:02 | L&D Current Admission ---
Current Admit Datetime Report Generated by CPN: 12/01/2016 06:00 ADMISSION INFORMATION Current Admit Date/Time: 11/30/2016 11:57 (11/30/2016 11:57:Leroy Sky RN) Reason for Admission: Onset of Labor (11/30/2016 11:57:Leroy Sky RN) EGA per Dates: 38.6 (11/30/2016 11:57:QS system process) Method of Arrival: Ambulatory (11/30/2016 11:57:Leroy Sky RN) Reason for Induction: Not Applicable (11/30/2016 11:57:Leroy Sky RN) Records Available: Yes (11/30/2016 11:57:Leroy Sky RN) General Admission Information: Reviewed; Updated; Confirmed (11/30/2016 11:57:Leroy Sky RN) General Admission Reviewed By: Julia Sky RN (11/30/2016 11:57:Leroy Sky RN) BELONGINGS/ADVANCED DIRECTIVES Disposition of Belongings: Kept with Patient (11/30/2016 11:57:Leroy Sky RN) Comments Regarding Disposition: See [facility] belongings form filled out by patient (11/30/2016 11:57:Leroy Sky RN) Advance Direct for Healthcare: No, and Wants No Information (11/30/2016 11:57:Leroy Sky RN) Durable Power of Forestry Fire Aid: No (11/30/2016 11:57:Leroy Sky RN) Living Will: No (11/30/2016 11:57:Leroy Sky RN) Organ Donor: No (11/30/2016 11:57:Leroy Sky RN) Pt Rights Information Given: Yes (11/30/2016 11:57:Leroy Sky RN) Pt Understands Pt Rights: Yes (11/30/2016 11:57:Leroy Sky RN) LEARNING ASSESSMENT Knowledge Level: Understands L_D Process (11/30/2016 11:57:Leroy Sky RN) Barriers to Learning: Pain (11/30/2016 11:57:Leroy Sky RN) Learning Readiness: Motivated (11/30/2016 11:57:Leroy Sky RN) Learns Best By: 1 to 1 Instruction; Reading; Demonstration (11/30/2016 11:57:Leroy Sky RN) Learning Needs: Labor and Delivery Process; Pain Management; Symptoms to Report; Treatment Plan; Medication (11/30/2016 11:57:Leroy Sky RN) DOMESTIC VIOLANCE SCREENING Dom Viol Threatened/Hurt: No (11/30/2016 11:57:Leroy Sky RN) Hx of Abuse/Neglect past 2yrs: No (11/30/2016 11:57:Leroy Sky RN) Feel Unsafe Going Home: No (11/30/2016 11:57:Leroy Sky RN) Addt'l Observ Indicating Abuse: No (11/30/2016 11:57:Leroy Sky RN) Reason Unable to Complete Screen: N/A, Screen Completed (11/30/2016 11:57:Leroy Sky RN) Considered Personal Harm/Suicide: No (11/30/2016 11:57:Leroy Sky RN) NUTRITIONAL/FUNCTIONAL SCREENING Problem with Appetite >5 Days: No (11/30/2016 11:57:Leroy Sky RN) Chew/Swallow Difficulties: No (11/30/2016 11:57:Leroy Sky RN) Inappropriate Wt Gain/Loss: No (11/30/2016 11:57:Leroy Sky RN) Presence Skin Breakdown/Ulcer: No (11/30/2016 11:57:Leroy Sky RN) Special Diet: No (11/30/2016 11:57:Leroy Sky RN) Pt Requests Counselor Camp Visit: No (11/30/2016 11:57:Leroy Sky RN) Hx of Any of the Following?: N/A (11/30/2016 11:57:Leroy Sky RN) New Diagnosis of: N/A (11/30/2016 11:57:Leroy Sky RN) Requires Assist w/Ambulation: No (11/30/2016 11:57:Leroy Sky RN) Uses Assist Device to Ambulate: No (11/30/2016 11:57:Leroy Sky RN) Pt Requires Help w/ADL's: No (11/30/2016 11:57:Leroy Sky RN)
[2016-12-01] MEDS: IBUPROFEN 800 MG TABLET PO SCH ×3 (06:15→21:11)
--- NOTE | 2016-12-01 06:16 | L&D Care Plan ---
LD CARE PLANS Datetime Report Generated by CPN: 12/01/2016 06:15 Datetime: 11/30/2016 11:44 Pain State: Actual (Elyse [place], RNC) Related To: Labor and Delivery Process (Elyse [place], RNC) Goal(s): Patients Pain will be Assessed and Managed; Patient will Verbalize Adequate Relief of Pain or the Ability to [place] with Current Pain (Elyse [place], RNC) Interventions: Assess Pain Severity on Scale of 0 (None) to 5 (Severe); Assess Type, Location and Intensity of Pain Each Time Client Reports Discomfort and Notify Provider if Unusal Pain Develops; Encourage Proper Breathing and Relaxation Techniques; Offer Alternatives Such as Repositioning, Calm Environment, Massages, Diversional Activities, Ice Pack, Splinting, and Ambulation; Administer Analgesics as Ordered; Assist with Epidural Placement as Appropriate; Evaluate Therapeutic Effectiveness of Medication and Treatments (Elyse Solano, KOFI) Outcome: Patient will Report Absence or Relief of Pain Consistent with Established Pain Goal (KOFI Layne) Status: Ongoing (KOFI Layne) Outcome: Patient will have a Decrease in Signs and Symptoms of Discomfort (Elyse Solano, RNC) Status: Ongoing (Elyse Solano, KOFI) Outcome: Pain will be Controlled During Procedures (Elyse Solano, KOFI) Status: Ongoing (KOFI Layne) Anxiety State: Actual (KOFI Layne) Related To: Labor and Delivery Process; Fear of Unknown; Situational Crisis; Medical Interventions; Significant Life Event (KOFI Layne) Goal(s): Patient will have Decreased Anxiety and be able to Function at Acceptable Levels (Elyse Solano, KOFI) Interventions: Assess Verbal and Nonverbal Behavioral Indicators of Anxiety; Assist Patient to Identify and Verbalize Symptoms of Anxiety; Identify and Demonstrate Techniques to Control Anxiety; Assist Patient with Coping Mechanisms to Manage Anxiety; Provide Theraputic Touch for the Patient; Explain to Patient, Using a Calm Reassuring Approach and Nonmedical Terms, All Activities, Procedures, and Concerns; Instruct Patient and Family about Post Discharge Care, Limitations, Symptoms to Report and Resources Available (Elyse Solano, KOFI) Outcome: Patient will Identify, Verbalize and Demonstrate Techniques to Control Anxiety (KOFI Layne) Status: Ongoing (KOFI Layne) Outcome: Patient's Posture, Facial Expressions, Gestures and Activity Level will Reflect Decreased Anxiety (Elyse [place], [facility]) [facility] Outcome: Patient will Verbalize a Sense of Control and/or Acceptance of the Situation ([facility]) Status: Ongoing ([facility], [facility]) Outcome: Patient will Identify and Utilize Support Person ([facility], [facility]) Status: Ongoing ([facility], [facility]) Infection State: Risk For (Elyse Solano, [facility]) Related To: Invasive Procedures (Elyse [place], [facility]) Goal(s): The Patient will be Free of Infection, Vital Signs Stable and Lab Work within Normal Parameters (Elsye [place], [facility]) Interventions: Instruct and Reinforce Proper Handwashing, Hygiene, and Care Techniques to Patient and Family; Monitor Vital Signs; Monitor Patient for the Following Signs of Infection: Fever, Abdominal Tenderness, Unusual Discharge; Monitor Aminiotic Fluid, Urine and Lochia for Color and Odor; Observe Wounds, Incisions and Invasive Line Sites for Redness, Drainage and Edema; Assess IV Sites per Hospital Policy; Monitor Lab and Test Results and Notify Provider of Abnormal Findings; Assess Nutritional Status and Promote Good Nutrition (Elyse [place], [facility]) Outcome: Patient will Remain Free of Infection (Elyse [place], [facility]) Status: Ongoing ([facility] Outcome: Infection will be Recognized Early to Allow for Prompt Treatment ([facility] Status: Ongoing ([facility] Outcome: Patient will have Vital Signs Within Expected Range ([facility]) Status: Ongoing ([facility], [facility]) Injury State: Risk For ([place], RNC) Related To: Labor and Delivery Process; Anesthesia ([place]se [place], RNC) Goal(s): Patient will Remain Free from Injury (E[place]se [place], RNC) Interventions: Monitoring as per Hospital Protocol; Assess Neurological Status; Perform Risk Assessment of Patients with Induction and ; Perform Fall Risk Assessment and Prevention per Hospital Protocol; Perform DVT Risk Assessment and Prophylaxis per Hospital Protocol; Ensure that Oxygen, Suction, and Resuscitation Medications and Equipment are Readily Available; Confirm Patient ID Prior to Procedure(s) and Medication Administration per Hospital Policy ([place]se [place], RNC) Outcome: Successful Fall Risk Prevention ([place], RNC) Status: Ongoing ([place], RNC) Outcome: Patient will Deliver Infant without Adverse Sequela ([place], RNC) Status: Ongoing ([place], RNC) Outcome: Patient's Neurological Status will Remain Stable ([place], RNC) Status: Ongoing ([place], RNC) Impaired Skin Integrity State: Risk For ([place], RNC) Related To: Vaginal Delivery; Invasive Procedures ([place], RNC) Goal(s): Patient will Maintain Optimal Skin Integrity, Free of Breakdown, Injury or Infection (Elyse Solano, STEPHENC) Interventions: Complete Screening for Pressure Ulcer Risk and Initiate Protocol per Hospital Policy; Monitor Site of Skin Impairment for Color Changes, Redness, Swelling, Warmth, Pain or Other Signs of Infection; Encourage and Assist with Position Changes; Monitor Patient's Mobility Status; Provide Adequate Nutrition and Fluids; Teach Patient Appropriate Hygienic Care; Teach Patient/Family Skin Care Management (Elyse Solano, STEPHENC) Outcome: Patient will not have Evidence of Injury Such as Skin Breakdown, Scrapes, Cuts, or Bruising (Elyse Solano, RNC) Status: Ongoing (Elyse Solano, RNC) Outcome: Patient will Report Any Altered Sensation or Pain at Site of Skin Impairment (Elyse Solano, RNC) Status: Ongoing (Elyse Solano, RNC) Outcome: Patients Incisions and Wounds will be without Signs or Symptoms of Infection (Elyse Solano, RNC) Status: Ongoing (Elyse Solano, RNC) Outcome: Patient will Demonstrate Understanding of Plan to Heal Skin and Prevent Reinjury and Verbalize Risk Factors (Elyse Solano, RNC) Status: Ongoing (Elyse Solano, RNC) Nutrition State: Actual (Elyse Solano, KOFI) Related To: ; (Elyse Solano, KOFI) Goal(s): Patient will have an Intake of Nutrients Sufficient to Meet Metabolic Needs (Elyse Solano, KOFI) Interventions: Nutritional Screening and Assessment per Hospital Policy; Consult Semi Driver for Further Assessment and Recommendations Regarding Food Preferences and Nutritional Support; Allow Patient to Plan and Order Diet when Possible; Monitor Laboratory Values That Indicate Nutritional Well-being; Consult Desk Top Publisher for Nutritional Support Regarding Requirements; Document Actual Weight Initially and Weekly (Do Not Estimate); Encourage Patient Participation in Maintaining a Food Log as Indicated; Educate Patient on the Importance of Maintaining an Adequate Caloric Intake (Elyse Solano, KOFI) Outcome: Patient will Receive Adequate Calories and Fluid Volume to Meet Metabolic Needs (KOFI Layne) Status: Ongoing (Elyse Solano, KOFI) Outcome: Patient will Select Foods or Meals that Support Adequate Nutrition (KOFI Layne)
[2016-12-01 07:58] LABS: HEMATOCRIT 32.5 % (36.0-47.0); HEMOGLOBIN 10.7 g/dL (12.0-15.5); HGB HCT DIFFERENCE -0.4; MEAN CORPUSCULAR HEMOGLOBIN 28.1 pg (27.0-33.4); MEAN CORPUSCULAR HGB CONC 32.8 g/dL (32.0-36.0); MEAN CORPUSCULAR VOLUME 86 fl (80-97); RED CELL DISTRIBUTION WIDTH 13.8 % (11.5-14.0); WHITE BLOOD COUNT 11.6 10^3/uL (4.0-10.5)
[2016-12-01] MEDS: FERROUS SULFATE 325 MG TABLET PO SCH ×2 (10:00→17:43)
[2016-12-01] MEDS: PRENATAL VITAMIN W-O CA NO5/FE FUMARATE/FA CAPSULE PO SCH (10:01)
[2016-12-01] MEDS: SENNOSIDES/DOCUSATE 8.6-50 MG 1 EACH TABLET PO SCH (10:01)
[2016-12-01] MEDS: DOCUSATE SODIUM 100 MG CAPSULE PO SCH ×2 (10:01→17:43)
--- NOTE | 2016-12-01 15:09 | PDOC PROGRESS REPORT ---
Subjective-OB Subjective: Post Delivery Day:1 21 year old s/p . Voiding and ambulating without difficulty. Bottle feeding. Denies any needs at this time Physical Exam (OB) Vital Signs: Temp Pulse Resp BP Pulse Ox 97.9 F 76 16 117/75 100 12/01/16 08:00 12/01/16 08:00 12/01/16 08:00 12/01/16 08:00 12/01/16 08:00 Intake & Output 11/30/16 12/01/16 12/02/16 06:59 06:59 06:59 Intake Total 300 400 Balance 300 400 Weight 93.5 kg - General General Appearance: Appears well In distress: None - Episiotomy/Laceration Site Condition: N/A - Lochia Lochia Amount: Scant < 10 ml Lochia Color: Rubra/Red - Abdomen Description: Tender Hernia Present: No Fundal Description: Firm, Midline Fundal Height: u/u - u/2 - Respiratory Respiratory Status: No respiratory distress - Extremities Upper extremity: Normal inspection Lower extremities: Normal inspection - Psychological Associated symptoms: Normal affect, Normal mood - bonding well with baby. Objective-Diagnostic Laboratory: 12/01/16 07:16 12/01/16 07:16 WBC 11.6 H RBC 3.80 Hgb 10.7 L Hct 32.5 L MCV 86 MCH 28.1 MCHC 32.8 RDW 13.8 Plt Count 180 Assessment and Plan(PN) - Assessment and Plan (1) Vaginal delivery Is this a current diagnosis for this admission?: YesPlan: continue stay (2) Term Is this a current diagnosis for this admission?: YesPlan: delivered - Time Spent with Patient Time with patient: Less than 15 minutes Medications reviewed and adjusted accordingly: Yes - Disposition Anticipated Discharge: Home Within: within 24 hours
[2016-12-02] MEDS: IBUPROFEN 800 MG TABLET PO SCH (05:08)
[2016-12-02 08:15] VITALS: BP 142/83
--- NOTE | 2016-12-02 09:30 | PDOC DISCHARGE SUMMARY ---
Final Diagnosis Discharge Date: 12/02/16 - Final Diagnosis (1) Vaginal delivery Is this a current diagnosis for this admission?: Yes Discharge Data - Discharge Medication Home Medications: No Home Medications 11/30/16 Reason(s) for Admission: Onset of Labor Procedures: NST Intrapartum Procedure(s): Spontaneous Vaginal Delivery - Diagnosis Test Laboratory: Temp Pulse Resp BP Pulse Ox 98.1 F 65 16 142/83 H 97 12/02/16 08:14 12/02/16 08:14 12/02/16 08:14 12/02/16 08:14 12/02/16 08:14 11/30/16 11/30/16 12/01/16 11:24 11:50 07:16 RBC 3.96 3.80 Hgb 11.1 L 10.7 L Hct 33.9 L 32.5 L Urine Opiates Screen NEGATIVE - Discharge information/Instructions Discharge Activity: Activity As Tolerated, No Lifting Over 10 Pounds, Pelvic Rest, No tub bath Discharge Diet: Regular Disposition: HOME, SELF-CARE Follow [facility] with: [facility] in: 4, Weeks
[2016-12-02] MEDS: FERROUS SULFATE 325 MG TABLET PO SCH (09:55)
[2016-12-02] MEDS: SENNOSIDES/DOCUSATE 8.6-50 MG 1 EACH TABLET PO SCH (09:55)
[2016-12-02] MEDS: PRENATAL VITAMIN W-O CA NO5/FE FUMARATE/FA CAPSULE PO SCH (09:55)
[2016-12-02] MEDS: DOCUSATE SODIUM 100 MG CAPSULE PO SCH (09:56)
== END 2016-12-02 10:50 | disposition home or self-care (01) | DRG 775 ==
LOC: LC 11:11 → LR 11:48 → 2S 15:37
PROVIDERS: ADMIT Obstetrics & Gynecology; ATTEND Obstetrics & Gynecology
PROC: 10E0XZZ Delivery of Products of Conception, External Approach (ICD-10-PCS; principal; 2016-11-30)
PROC: 10907ZC Drainage of Amniotic Fluid, Therapeutic from Products of Conception, Via Natural or Artificial Opening (ICD-10-PCS; 2016-11-30)
PROC: 4A1HXCZ Monitoring of Products of Conception, Cardiac Rate, External Approach (ICD-10-PCS; 2016-11-30)
DX: O99.344 Other mental disorders complicating childbirth (principal); F50.89 Other specified eating disorder; O62.3 Precipitate labor; Z28.21 Immunization not carried out because of patient refusal; Z3A.38 38 weeks gestation of pregnancy; Z37.0 Single live birth
CPT/HCPCS: 36415; 59025; 80307; 81005; 85025; 85027; 86592; 86850; 86900; 86901; 90715; 94760; J2590; J3490

== ENCOUNTER 2017-08-29 08:50 | Emergency (ER) | payer SELFPAY ==
[2017-08-29 10:22] LABS: APPEARANCE,URINE CLEAR; BILIRUBIN,URINE NEGATIVE (NEGATIVE); GLUCOSE, URINE NEGATIVE (NEGATIVE); KETONES,URINE NEGATIVE (NEGATIVE); LEUKOCYTE ESTERASE,URINE NEGATIVE (NEGATIVE); NITRITE,URINE NEGATIVE (NEGATIVE); PROTEIN,URINE NEGATIVE (NEGATIVE); URINE SPECIFIC GRAVITY 1.021
[2017-08-29] MEDS ORDERED: PROCHLORPERAZINE EDISYLATE INJ 10 MG/2 ML VIAL IV ONE (10:23)
[2017-08-29] MEDS ORDERED: KETOROLAC TROMETHAMINE INJ/PF 30 MG/1 ML SDV IV ONE (10:23)
[2017-08-29] MEDS ORDERED: DIPHENHYDRAMINE HCL 50 MG/ML VIAL IV ONE (10:23)
[2017-08-29] MEDS ORDERED: NORMAL SALINE 1000 ML 1,000 ML IV ONE (10:24)
[2017-08-29] MEDS ORDERED: LORATADINE 10 MG TABLET PO ONE (10:32)
[2017-08-29] MEDS ORDERED: GUAIFENESIN 600 MG TABLET.SA PO ONE (10:32)
[2017-08-29] MEDS ORDERED: PSEUDOEPHEDRINE HCL 30 MG TABLET PO ONE (10:32)
--- NOTE | 2017-08-29 10:33 | ER Document Report ---
ED Flu Like - General Chief Complaint: Back Pain Stated Complaint: CHEST PRESSURE Time Seen by Provider: 08/29/17 09:10 Mode of Arrival: Ambulatory Information source: Patient Notes: 22-year-old female presented to ED for complaint of low back pain 2 days. She states she has had cough and cold congestion. She states she has not had any fever. She does have a headache that comes and goes. Patient has a history of migraines. She states she has had back pain in the past but no injuries that she remembers. TRAVEL OUTSIDE OF THE [place] IN LAST 30 DAYS: No - HPI Onset: Other - 2 days Timing/Duration: Intermittent Quality of pain: Achy, Sharp Severity: Moderate Pain Level: 3 Associated symptoms: Body/muscle aches, Headache, Rhinnorhea, Other - Backache Similar symptoms previously: Yes Recently seen / treated by doctor: No - Related Data Allergies/Adverse Reactions: No Known Allergies Allergy (Verified 08/29/17 08:55) Past Medical History - General Information source: Patient - Social History Smoking Status: Current Every Day Smoker Cigarette use (# per day): Yes - 5-6 cigarettes a day Chew tobacco use (# tins/day): No Smoking Education Provided: Yes - Less than 2 minutes Frequency of alcohol use: Social - 2-3 times a week Drug Abuse: None Lives with: Family Family History: None. denies: Arthritis, CAD, COPD, CVA, DM, Hyperlipidemia, Hypertension, Malignancy, Thyroid Disfunction Patient has suicidal ideation: No Patient has homicidal ideation: No - Past Medical History Cardiac Medical History: Reports: None Pulmonary Medical History: Reports: None EENT Medical History: Reports: None Neurological Medical History: Reports: Hx Migraine Endocrine Medical History: Reports: None Renal/ Medical History: Reports: None Malignancy Medical History: Reports: None GI Medical History: Reports: None Musculoskeltal Medical History: Reports None Skin Medical History: Reports None Psychiatric Medical History: Reports: None Traumatic Medical History: Reports: None Infectious Medical History: Reports: None Surgical Hx: Negative Past Surgical History: Reports: None - Immunizations Immunizations up to date: Yes Hx Diphtheria, Pertussis, Tetanus Vaccination: Yes - 08/27/12 Review of Systems - Review of Systems Constitutional: No symptoms reported EENT: Nose congestion, Sinus discharge Cardiovascular: No symptoms reported Respiratory: Cough Gastrointestinal: No symptoms reported Genitourinary: No symptoms reported Female Genitourinary: No symptoms reported Musculoskeletal: Back pain, Muscle pain, Muscle stiffness Skin: No symptoms reported Hematologic/Lymphatic: No symptoms reported Neurological/Psychological: Headaches -: Yes All other systems reviewed and negative Physical Exam - Vital signs Vitals: Temp Pulse Resp BP Pulse Ox 98.8 F 97 19 142/82 H 99 08/29/17 08:57 08/29/17 08:57 08/29/17 08:57 08/29/17 08:57 08/29/17 08:57 Interpretation: Normal - General General appearance: Appears well, Alert - HEENT Head: Normocephalic, Atraumatic Eyes: Normal Pupils: PERRL Ears: Normal External canal: Normal Tympanic membrane: Normal Nasal: Swelling, Clear rhinorrhea Mouth/Lips: Normal Mucous membranes: Normal Pharynx: Post nasal drainage Neck: Normal - Respiratory Respiratory status: No respiratory distress Chest status: Nontender Breath sounds: Normal Chest palpation: Normal - Cardiovascular Rhythm: Regular Heart sounds: Normal auscultation Murmur: No - Abdominal Inspection: Normal Distension: No distension Bowel sounds: Normal Tenderness: Nontender Organomegaly: No organomegaly - Back Back: Normal, Tender. No: Deformity/step-off, CVA tenderness, Vertebra tenderness, Scars, Scoliosis, Wounds - Extremities General upper extremity: Normal inspection, Nontender, Normal color, Normal ROM , Normal temperature General lower extremity: Normal inspection, Nontender, Normal color, Normal ROM , Normal temperature, Normal weight bearing. No: Haily's sign - Neurological Neuro grossly intact: Yes Cognition: Normal Orientation: AAOx4 [place] Coma Scale Eye Opening: Spontaneous [place] Coma Scale Verbal: Oriented [place] Coma Scale Motor: Obeys Commands [place] Coma Scale Total: 15 Speech: Normal Motor strength normal: LUE, RUE, LLE, RLE Sensory: Normal - Psychological Associated symptoms: Normal affect, Normal mood - Skin Skin Temperature: Warm Skin Moisture: Dry Skin Color: Normal Course - Re-evaluation Re-evalutation: 08/29/17 21:09 Patient was ordered Claritin and Sudafed Mucinex Toradol and Compazine for her cold symptoms and migraine. Patient decided she did not want to stay to get her IV medicines but would rather take her medicine at home so her Toradol and Compazine were changed to p.o. prescriptions and she will take them at home. - Vital Signs Vital signs: Temp Pulse Resp BP Pulse Ox 98.6 F 89 16 137/78 H 98 08/29/17 10:35 08/29/17 10:35 08/29/17 10:35 08/29/17 10:35 08/29/17 10:35 - Laboratory Laboratory results interpreted by me: 08/29/17 09:35 Urine Urobilinogen 4.0 H Urine Ascorbic Acid 40 H Discharge - Discharge Clinical Impression: URI (upper respiratory infection) Qualifiers: URI type: unspecified URI Qualified Code(s): J06.9 - Acute upper respiratory infection, unspecified Back pain Qualifiers: Back pain location: low back pain Chronicity: acute Back pain laterality: bilateral Sciatica presence: without sciatica Qualified Code(s): M54.5 - Low back pain Headache Qualifiers: Headache type: unspecified Headache chronicity pattern: unspecified pattern Intractability: not intractable Qualified Code(s): R51 - Headache Condition: Stable Disposition: HOME, SELF-CARE Additional Instructions: UPPER RESPIRATORY ILLNESS: You have a viral infection of the respiratory passages -- a "cold." This common infection causes nasal congestion, drainage, and often sore throat and cough. It is highly contagious. The disease usually lasts about 10 to 14 days. There is no "cure" for the viral infection -- it must run its course. If there is a complication, such as bacterial infection in the nose, sinuses, middle ear, or bronchial tubes, antibiotics may be required. The antibiotics won't affect the virus. Drink plenty of fluids. A humidifier may help. An expectorant medication or decongestant may make you more comfortable. Use acetaminophen or ibuprofen for fever or aches. See the doctor if fever persists over two days, if there is any significant worsening of your symptoms, or if you simply fail to improve as expected. HEADACHE: The physician does not feel that the headache you are experiencing has a serious underlying cause. Most headaches are due to emotional stress, with resultant muscle tension (tension headache). Occasionally, headaches are secondary to changes in the blood vessels of the scalp (vascular headache and migraine headache). Sometimes, a headache is the first symptom of another developing illness, such as a viral infection. You have no evidence of stroke, bleeding, meningitis, or other serious cause of your headache. The treatment of headaches varies with the severity and cause of the pain. Not all headaches need pain shots. In fact, there is evidence that using narcotics for headaches may make them worse in the long run. The physician will determine the therapy that's in your best interest. If you develop a fever, if the headache is different from any you've previously experienced, or if the headache progressively worsens, then call your physician at once or go to the emergency room. DECONGESTANT MEDICATION: A decongestant medicine has been suggested. Often this medicine is combined in the same tablet with an antihistamine or expectorant. This type of medicine is helpful in treating a bad cold or sinus condition, as well as in treatment of the nasal congestion of hay fever. It is not of much benefit for lung infections. Decongestant medicines are related to stimulants. They can cause an increase in blood pressure and heart rate. Persons with heart disease and high blood pressure should not take decongestants without discussing this with the physician. If you develop palpitations, chest pain, headache, or tremors, stop the medicine and consult your physician. COUGH-SUPPRESSANT & EXPECTORANT MEDICATION: You are to use a cough medication as needed for relief of symptoms. This medicine is a combination of an expectorant (to make the mucous thinner and more easily "coughed up") and a cough suppressant (to reduce the frequency of coughing). The cough-suppressant medicine is related to narcotics. You may experience mild nausea and sleepiness. Some patients who are very sensitive to narcotics may have stomach pain from this medicine. Taking the medicine with food reduces these side effects. Do not drive or work with machinery until you know how this medicine affects you. The expectorant should have no side effects. Iodine-containing expectorants (such as organidin) should not be taken by persons with active thyroid disease unless approved by your doctor. Call the doctor if you develop shortness of breath, hives, rash, itching, lightheadedness, or severe nausea and vomiting. USE OF ACETAMINOPHEN (Tylenol): Acetaminophen may be taken for pain relief or fever control. It's much safer than aspirin, offering a wider range of "safe" dosages. It is safe during . Some brand names are Tylenol, Panadol, Datril, Anacin 3, Tempra, and Liquiprin. Acetaminophen can be repeated every four hours. The following are maximum recommended dosages: >89 pounds or adults 650 mg to 900 mg Acetaminophen can be repeated every four hours. Maximum dose not to exceed 4000 mg a day. USE OF DIPHENHYDRAMINE: Diphenhydramine (Benadryl) is an antihistamine and has been recommended to help treat your headache and to prevent side effects of other medications used to treat headaches. The medication can be repeated four times daily. Age Elixir (12.5 mg/tsp) 25 mg pill adult 1-2 tabs Antihistamines may cause drowsiness, especially with the first dose. Do not operate machinery or drive while under the effects of the medication. Do not combine the medication with alcohol, or with any other medication without talking to your doctor. COMPAZINE FOR HEADACHE: You have received therapy for headaches, using intravenous Compazine. This treatment is dramatically successful in relieving the headache in about 50 percent of cases. When it works, it provides a rapid method of eliminating the headache without resorting to narcotics (and the problems associated with them). Most patients still feel fully alert after the Compazine, but others may be slightly drowsy. It's best not to drive or work with machinery for six to eight hours. Do not take alcohol or other medication unless you discuss it with the doctor. If you develop tightness and spasms in your muscles, especially the neck and tongue, you should return. This is a side effect which can be treated. Ibuprofen Ibuprofen is an excellent, safe drug for pain control. In addition, it has potent antiinflammatory effects which are beneficial, especially in the treatment of injuries, arthritis, or tendonitis. It's best to take ibuprofen with food. Persons with ulcer disease or allergy to aspirin should notify their physician of this before taking ibuprofen. Take the medication exactly as prescribed. Don't take additional doses unless instructed to do so by your doctor. If you develop wheezing, shortness of breath, hives, faintness, stomach pain, vomiting, or dark black stools, return for re-evaluation at once. FOLLOW-UP CARE: If you have been referred to a physician for follow-up care, call the physician s office for an appointment as you were instructed or within the next two days. If you experience worsening or a significant change in your symptoms, notify the physician immediately or return to the Emergency Department at any time for re-evaluation. Prescriptions: Prochlorperazine Maleate [Compazine 10 mg Tablet] 10 mg PO Q6HP PRN #20 tablet PRN Reason: Forms: Elevated Blood Pressure, Smoking Cessation Education
[2017-08-29 10:44] VITALS: BP 137/78
== END 2017-08-29 10:41 | disposition home or self-care (01) ==
LOC: ER 08:50
DX: J06.9 Acute upper respiratory infection, unspecified (principal); M54.5 Low back pain; R51 Headache; M54.9 Dorsalgia, unspecified; R07.9 Chest pain, unspecified; R05 Cough; R09.81 Nasal congestion; F17.210 Nicotine dependence, cigarettes, uncomplicated
CPT/HCPCS: 81001; 81025; 99283

== ENCOUNTER 2018-09-02 09:20 | Emergency (ER) | payer SELFPAY ==
[2018-09-02 09:53] LABS: APPEARANCE,URINE SLIGHTLY-CLOUDY; BILIRUBIN,URINE NEGATIVE (NEGATIVE); COLOR,URINE YELLOW; GLUCOSE, URINE NEGATIVE (NEGATIVE); KETONES,URINE NEGATIVE (NEGATIVE); LEUKOCYTE ESTERASE,URINE NEGATIVE (NEGATIVE); NITRITE,URINE NEGATIVE (NEGATIVE); PROTEIN,URINE NEGATIVE (NEGATIVE); URINE SPECIFIC GRAVITY 1.023; UROBILINOGEN,URINE NEGATIVE mg/dL (<2.0)
--- NOTE | 2018-09-02 09:55 | ER Document Report ---
ED Medical Screen (RME) - General Chief Complaint: Pelvic Pain Stated Complaint: ABDOMINAL/PELVIC PAIN Time Seen by Provider: 09/02/18 09:52 Notes: Patient says that for the past 3-4 days she is having sharp pains in the lower abdomen, midline, going into the pelvic region. She has had some nausea but not vomiting. One diarrhea stool during these 3-4 days. Has never had this before. Denies UTI symptoms. Denies any fever. LMP 2 weeks ago and normal. On no control. On no medications. No abdominal surgeries. TRAVEL OUTSIDE OF THE [place] IN LAST 30 DAYS: No - Related Data Allergies/Adverse Reactions: No Known Allergies Allergy (Verified 08/29/17 08:55) Past Medical History - Social History Chew tobacco use (# tins/day): No Frequency of alcohol use: Occasional Drug Abuse: None Neurological Medical History: Reports: Hx Migraine Renal/ Medical History: Denies: Hx Peritoneal Dialysis - Immunizations Immunizations up to date: Yes Hx Diphtheria, Pertussis, Tetanus Vaccination: Yes - 08/27/12 Physical Exam - Vital signs Vitals: Temp Pulse Resp BP Pulse Ox 98.3 F 79 18 125/79 97 09/02/18 09:23 09/02/18 09:23 09/02/18 09:23 09/02/18 09:23 09/02/18 09:23 Course - Vital Signs Vital signs: Temp Pulse Resp BP Pulse Ox 98.3 F 79 18 125/79 97 09/02/18 09:23 09/02/18 09:23 09/02/18 09:23 09/02/18 09:23 09/02/18 09:23
[2018-09-02] MEDS ORDERED: ACETAMINOPHEN 325 MG TABLET PO ONE (10:27)
[2018-09-02 10:28] LABS: ABSOLUTE EOSINOPHILS # (AUTO) 0.2 10^3/uL (0.0-0.6); ABSOLUTE LYMPHOCYTES (AUTO) 1.5 10^3/uL (0.5-4.7); ABSOLUTE MONOCYTES (AUTO) 0.4 10^3/uL (0.1-1.4); ABSOLUTE NEUT (AUTO) 3.5 10^3/uL (1.7-8.2); BASOPHILS % (AUTO) 0.3 % (0-2); EOSINOPHILS % (AUTO) 2.8 % (0-6); HEMATOCRIT 41.3 % (36.0-47.0); HEMOGLOBIN 13.8 g/dL (12.0-15.5); LYMPHOCYTES % (AUTO) 26.2 % (13-45); MEAN CORPUSCULAR HEMOGLOBIN 29.5 pg (27.0-33.4); MEAN CORPUSCULAR HGB CONC 33.5 g/dL (32.0-36.0); MEAN CORPUSCULAR VOLUME 88 fl (80-97); MONOCYTES % (AUTO) 7.9 % (3-13); PLATELET COUNT 297 10^3/uL (150-450); RED BLOOD COUNT 4.68 10^6/uL (3.72-5.28); RED CELL DISTRIBUTION WIDTH 14.2 % (11.5-14.0); SEGMENTED NEUTROPHILS % (AUTO) 62.8 % (42-78); TOTAL CELLS COUNTED % (AUTO) 100 %; WHITE BLOOD COUNT 5.6 10^3/uL (4.0-10.5)
--- NOTE | 2018-09-02 10:28 | ER Document Report ---
ED General - General Chief Complaint: Pelvic Pain Stated Complaint: ABDOMINAL/PELVIC PAIN Time Seen by Provider: 09/02/18 09:52 TRAVEL OUTSIDE OF THE [place] IN LAST 30 DAYS: No - HPI Notes: Patient is a 23-year-old female that presents to the emergency department for chief complaint of pelvic pain. Patient reports intermittent pelvic pain for the last 4 days. She states it is mostly suprapubic. The pain is sharp and crampy and lasts for a few minutes at a time. She denies any aggravating or relieving factors. She did have one episode of diarrhea a few days ago. She reports nausea with no emesis. She had a short menstrual cycle 2 weeks ago which lasted 4 days instead of her usual 7. She has not taken any home test but states she may be . She denies any fevers or chills, shortness of breath, cough and congestion. Past Medical History: Negative Past Surgical History: Negative Social History: Denies drugs alcohol and tobacco Family History: Reviewed and noncontributory for presenting illness Allergies: Reviewed, see documented allergy list. REVIEW OF SYSTEMS: CONSTITUTIONAL : No fever No chills No diaphoresis No recent illness EENT: No vision changes No congestion No sore throat CARDIOVASCULAR: No chest pain No palpitations RESPIRATORY: No shortness of breath No cough No difficulty breathing GASTROINTESTINAL: abdominal pain nausea No vomiting diarrhea GENITOURINARY: No dysuria No hematuria No difficulty urinating MUSCULOSKELETAL: No back pain No leg pain No arm pain SKIN: No rashes No lesions LYMPHATIC: No swollen, enlarged glands. NEUROLOGICAL: No lightheadedness No headache No weakness No paresthesias PSYCHIATRIC: No anxiety No depression PHYSICAL EXAMINATION: Vital signs reviewed, nursing noted reviewed. GENERAL: Well-appearing, well-nourished and in no acute distress. HEAD: Atraumatic, normocephalic. EYES: Eyes appear normal, extraocular movements intact, sclera anicteric, conjunctiva are normal. ENT: nares patent, oropharynx clear without exudates. Moist mucous membranes. NECK: Normal range of motion, supple without lymphadenopathy LUNGS: Breath sounds clear to auscultation bilaterally and equal. No wheezes rales or rhonchi. HEART: Regular rate and rhythm without murmurs ABDOMEN: Soft, mild suprapubic tenderness, normoactive bowel sounds. No rebound , guarding, or rigidity. No masses appreciated. EXTREMITIES: Nontender, good range of motion, no pitting or edema. NEUROLOGICAL: No focal neurological deficits. Moves all extremities spontaneously Motor and sensory grossly intact on exam. PSYCH: Normal mood, normal affect. SKIN: Warm, Dry, normal turgor, no rashes or lesions noted on exposed skin - Related Data Allergies/Adverse Reactions: No Known Allergies Allergy (Verified 09/02/18 09:54) Past Medical History - Social History Smoking Status: Current Some Day Smoker Chew tobacco use (# tins/day): No Frequency of alcohol use: Occasional Drug Abuse: None Family History: None. denies: Arthritis, CAD, COPD, CVA, DM, Hyperlipidemia, Hypertension, Malignancy, Thyroid Disfunction Patient has suicidal ideation: No Patient has homicidal ideation: No Neurological Medical History: Reports: Hx Migraine Renal/ Medical History: Denies: Hx Peritoneal Dialysis - Immunizations Immunizations up to date: Yes Hx Diphtheria, Pertussis, Tetanus Vaccination: Yes - 08/27/12 Review of Systems - Review of Systems Notes: Dictated Physical Exam - Vital signs Vitals: Temp Pulse Resp BP Pulse Ox 98.3 F 79 18 125/79 97 09/02/18 09:23 09/02/18 09:23 09/02/18 09:23 09/02/18 09:23 09/02/18 09:23 - Notes Notes: Dictated Course - Re-evaluation Re-evalutation: 09/02/18 10:27 Vitals reviewed. Nursing notes reviewed. Patient order Tylenol for pain. She is nontoxic appearing With a benign abdominal exam. 09/02/18 11:12 Patient reevaluated and is hemodynamically stable. She states she is feeling well. Her lab work is unremarkable. HCG is negative. There is no urinary tract infection. Her repeat abdominal exam is benign and very minimally tender in the suprapubic region. I do not suspect ovarian torsion or acute appendicitis. Patient had gonorrhea and Chlamydia testing sent today but is not symptomatic and prophylactic treatment will be withheld at this time. She will be referred to gynecology for follow-up. She will return for new or worsening symptoms. She was discharged in stable condition. Laboratory 09/02/18 09/02/18 09/02/18 09:25 10:00 10:05 WBC 5.6 RBC 4.68 Hgb 13.8 Hct 41.3 MCV 88 MCH 29.5 MCHC 33.5 RDW 14.2 H Plt Count 297 Seg Neutrophils % 62.8 Lymphocytes % 26.2 Monocytes % 7.9 Eosinophils % 2.8 Basophils % 0.3 Absolute Neutrophils 3.5 Absolute Lymphocytes 1.5 Absolute Monocytes 0.4 Absolute Eosinophils 0.2 Absolute Basophils 0.0 Sodium Potassium Chloride Carbon Dioxide Anion Gap BUN Creatinine Est GFR ( Amer) Est GFR (Non-Af Amer) Glucose Calcium Total Bilirubin Direct Bilirubin Neonat Total Bilirubin Neonat Direct Bilirubin Neonat Indirect Bili AST ALT Alkaline Phosphatase Total Protein Albumin Serum HCG, Qual Urine Color YELLOW Cancelled Urine Appearance SLIGHTLY-CLOUDY Cancelled Urine pH 6.0 Cancelled Ur Specific [place] 1.023 Cancelled Urine Protein NEGATIVE Cancelled Urine Glucose (UA) NEGATIVE Cancelled Urine Ketones NEGATIVE Cancelled Urine Blood NEGATIVE Cancelled Urine Nitrite NEGATIVE Cancelled Urine Bilirubin NEGATIVE Cancelled Urine Urobilinogen NEGATIVE Cancelled Ur Leukocyte Esterase NEGATIVE Cancelled Urine WBC (Auto) 2 Cancelled Urine RBC (Auto) 1 Cancelled U Hyaline Cast (Auto) Cancelled Urine Bacteria (Auto) Cancelled Urine Red Cell Clumps Cancelled Urine WBC Clumps Cancelled Squamous Epi Cells Auto 10 Cancelled U Non-Squamous Epis Auto Cancelled Calcium Carbonate Cryst Cancelled Calcium Phosphate Cryst Cancelled Calcium Oxalate Cr Auto Cancelled Leucine Crystals Cancelled Cystine Crystals Cancelled Uric Acid Cryst (Auto) Cancelled Triple Phos Cryst (Auto) Cancelled Tyrosine Crystals Cancelled Amorphous Sediment Auto Cancelled Cellular Casts Cancelled Epithelial Casts (Auto) Cancelled Fatty Casts Cancelled Granular Casts (Auto) Cancelled Waxy Casts (Auto) Cancelled Broad Casts Cancelled RBC Casts (Auto) Cancelled WBC Casts (Auto) Cancelled Urine Mucus (Auto) FEW Cancelled U Trichomonas (Auto) Cancelled Ur Yeast w Hyphae Cancelled Urine Yeast (Budding) Cancelled Urine Ascorbic Acid NEGATIVE Cancelled 09/02/18 09/02/18 10:05 10:05 WBC RBC Hgb Hct MCV MCH MCHC RDW Plt Count Seg Neutrophils % Lymphocytes % Monocytes % Eosinophils % Basophils % Absolute Neutrophils Absolute Lymphocytes Absolute Monocytes Absolute Eosinophils Absolute Basophils Sodium 142.3 Potassium 4.3 Chloride 104 Carbon Dioxide 29 Anion Gap 9 BUN 10 Creatinine 0.81 Est GFR ( Amer) > 60 Est GFR (Non-Af Amer) > 60 Glucose 85 Calcium 9.7 Total Bilirubin 0.4 Direct Bilirubin 0.2 Neonat Total Bilirubin Not Reportable Neonat Direct Bilirubin Not Reportable Neonat Indirect Bili Not Reportable AST 18 ALT 14 Alkaline Phosphatase 62 Total Protein 6.8 Albumin 3.9 Serum HCG, Qual NEGATIVE Urine Color Urine Appearance Urine pH Ur Specific [place] Urine Protein Urine Glucose (UA) Urine Ketones Urine Blood Urine Nitrite Urine Bilirubin Urine Urobilinogen Ur Leukocyte Esterase Urine WBC (Auto) Urine RBC (Auto) U Hyaline Cast (Auto) Urine Bacteria (Auto) Urine Red Cell Clumps Urine WBC Clumps Squamous Epi Cells Auto U Non-Squamous Epis Auto Calcium Carbonate Cryst Calcium Phosphate Cryst Calcium Oxalate Cr Auto Leucine Crystals Cystine Crystals Uric Acid Cryst (Auto) Triple Phos Cryst (Auto) Tyrosine Crystals Amorphous Sediment Auto Cellular Casts Epithelial Casts (Auto) Fatty Casts Granular Casts (Auto) Waxy Casts (Auto) Broad Casts RBC Casts (Auto) WBC Casts (Auto) Urine Mucus (Auto) U Trichomonas (Auto) Ur Yeast w Hyphae Urine Yeast (Budding) Urine Ascorbic Acid - Vital Signs Vital signs: Temp Pulse Resp BP Pulse Ox 98.3 F 79 18 125/79 97 09/02/18 09:23 09/02/18 09:23 09/02/18 09:23 09/02/18 09:23 09/02/18 09:23 - Laboratory Result Diagrams: 09/02/18 10:05 09/02/18 10:05 Laboratory results interpreted by me: 09/02/18 10:05 RDW 14.2 H Discharge - Discharge Clinical Impression: Pelvic pain Condition: Stable Disposition: HOME, SELF-CARE Additional Instructions: Please return to the emergency department if you have any worsening, or concern of your symptoms. Please return to the emergency department if you develop chest pain, difficulty breathing, severe abdominal pain, or ongoing vomiting. Please follow-up with your primary care physician in 2-3 days and any other recommended physicians. If prescribed, take all medications as directed. If you have any questions or concerns do not hesitate to return the emergency department for evaluation. [] Referrals: [facility] [Provider Group] - Follow up in 3-5 days
[2018-09-02 10:47] LABS: ALANINE AMINOTRANSFERASE 14 U/L (9-52); ALBUMIN 3.9 g/dL (3.5-5.0); ALKALINE PHOSPHATASE 62 U/L (38-126); ANION GAP 9 (5-19); ASPARTATE AMINO TRANSFERASE 18 U/L (14-36); BILIRUBIN,DIRECT 0.2 mg/dL (0.0-0.4); BILIRUBIN,TOTAL 0.4 mg/dL (0.2-1.3); BLOOD UREA NITROGEN 10 mg/dL (7-20); CALCIUM 9.7 mg/dL (8.4-10.2); CARBON DIOXIDE 29 mmol/L (22-30); CHLORIDE 104 mmol/L (98-107); GLUCOSE 85 mg/dL (75-110); POTASSIUM 4.3 mmol/L (3.6-5.0); SODIUM 142.3 mmol/L (137-145); TOTAL PROTEIN 6.8 g/dL (6.3-8.2)
[2018-09-02 11:30] VITALS: BP 122/76
[2018-09-02 12:01] LABS: CHLAM PCR NOT DETECTED (NOT DETECT); GON PCR NOT DETECTED (NOT DETECT)
== END 2018-09-02 11:30 | disposition home or self-care (01) ==
LOC: ER 09:20
DX: R10.2 Pelvic and perineal pain (principal); R11.0 Nausea; R19.7 Diarrhea, unspecified; F17.200 Nicotine dependence, unspecified, uncomplicated
CPT/HCPCS: 36415; 80053; 81001; 84703; 85025; 87491; 87591; 99284

== ENCOUNTER 2018-09-17 18:27 | Emergency (ER) | payer SELFPAY ==
[2018-09-17] MEDS ORDERED: TETRACAINE HCL 0.5% OPH SOLN 4 ML OD ONE (18:55)
[2018-09-17] MEDS ORDERED: TOBRAMYCIN SULFATE/DEXAMETH OPH SUSP 2.5 ML OD ONE (19:24)
--- NOTE | 2018-09-17 19:47 | ER Document Report ---
HPI - HPI Patient complains to provider of: left eye irritation Time Seen by Provider: 09/17/18 18:50 Pain Level: 4 Context: Patient is a 23-year-old female presents to the emergency department complaining of left eye irritation. Patient states last night after taking out her contact lens she noticed that her left eye was irritated and had a foreign body sensation. Patient states she is noticed increased watering throughout the day and has had trouble blinking her left eye. Patient denies reporting in her contact lenses. Patient denies any trauma or injury to the left eye. Past medical history: None Medications: None Allergies: None - CONSTITUTIONAL Constitutional: DENIES: Fever, Chills - EENT EENT: REPORTS: Eye problems - Redness/pain to L. DENIES: Sore Throat, Ear Pain - NEURO Neurology: DENIES: Headache, Weakness, Vision blurred, Dizzinesss / Vertigo - CARDIOVASCULAR Cardiovascular: DENIES: Chest pain - RESPIRATORY Respiratory: DENIES: Trouble Breathing, Coughing - GASTROINTESTINAL Gastrointestinal: DENIES: Abdominal Pain, Black / Bloody Stools - URINARY Urinary: DENIES: Dysuria, Urgency, Frequency - REPRODUCTIVE Reproductive: DENIES: : - MUSCULOSKELETAL Musculoskeletal: DENIES: Extremity pain Past Medical History - General Information source: Patient - Social History Smoking Status: Unknown if Ever Smoked Family History: None. denies: Arthritis, CAD, COPD, CVA, DM, Hyperlipidemia, Hypertension, Malignancy, Thyroid Disfunction Patient has suicidal ideation: No Patient has homicidal ideation: No Neurological Medical History: Reports: Hx Migraine Renal/ Medical History: Denies: Hx Peritoneal Dialysis - Immunizations Immunizations up to date: Yes Hx Diphtheria, Pertussis, Tetanus Vaccination: Yes - 08/27/12 Vertical Provider Document - CONSTITUTIONAL Agree With Documented VS: Yes Notes: GENERAL: Alert, interacts well. No acute distress. HEAD: Normocephalic, atraumatic. EYES: Pupils equal, round, and reactive to light. Extraocular movements intact. Conjunctivae injected with no active discharge. Fluorescein stain reveals a 1 mm abrasion at 6:00 on the conjunctive below the iris. No proptosis noted no upper or lower eyelid swelling noted. ENT: Oral mucosa moist, tongue midline. NECK: Full range of motion. Supple. Trachea midline. LUNGS: Clear to auscultation bilaterally, no wheezes, rales, or rhonchi. No respiratory distress. HEART: Regular rate and rhythm. No murmur ABDOMEN: Soft, non-tender. Non-distended. Bowel sounds present in all 4 quadrants. EXTREMITIES: Moves all 4 extremities spontaneously. No edema, normal radial and dorsalis pedis pulses bilaterally. No cyanosis. BACK: no cervical, thoracic, lumbar midline tenderness. No saddle anesthesia, normal distal neurovascular exam. NEUROLOGICAL: Alert and oriented x3. Normal speech. cranial nerves II through XII grossly intact PSYCH: Normal affect, normal mood. SKIN: Warm, dry, normal turgor. No rashes or lesions noted. - INFECTION CONTROL TRAVEL OUTSIDE OF THE [place] IN LAST 30 DAYS: No Course - Re-evaluation Re-evalutation: 09/17/18 19:47 Plan nursing did reveal a corneal abrasion at 6:00 below the iris. Discussed treatments for contact lens worse with patient at bedside. Patient states she does not have insurance and she will not be able to fill a prescription. Tobramycin drops were then administered in the emergency room and given to her. Discussed need to follow-up with ophthalmology should pain continue or return to the emergency room. - Vital Signs Vital signs: Temp Pulse Resp BP Pulse Ox 99 F 90 18 134/80 H 96 09/17/18 18:32 09/17/18 18:32 09/17/18 18:32 09/17/18 18:32 09/17/18 18:32 Discharge - Discharge Clinical Impression: Corneal abrasion Qualifiers: Encounter type: initial encounter Laterality: left Qualified Code(s): S05.02XA - Injury of conjunctiva and corneal abrasion without foreign body, left eye, initial encounter Condition: Stable Disposition: HOME, SELF-CARE Instructions: Corneal Abrasion ([facility]), Eyedrop Use ([facility]) Additional Instructions: As we discussed you have been seen and treated in the emergency department for corneal abrasion. This is a scratch on her eye. You should use the tobramycin solution drops as prescribed. Please put 2 drops in the left eye 4 times a day for the next 5 days. Please make an appointment with your rosin barrel filler or go to any eye center. Please return to the emergency room for any other concerning symptoms.
[2018-09-17] MEDS ORDERED: TOBRAMYCIN SULFATE/DEXAMETH OPH SUSP 2.5 ML ONE (19:51)
[2018-09-17 20:15] VITALS: BP 136/91
== END 2018-09-17 20:15 | disposition home or self-care (01) ==
LOC: ER 18:27
DX: S05.02XA Injury of conjunctiva and corneal abrasion without foreign body, left eye, initial encounter (principal); H57.12 Ocular pain, left eye; X58.XXXA Exposure to other specified factors, initial encounter
CPT/HCPCS: 99283; J3490 ×2

== ENCOUNTER 2018-09-25 19:56 | Emergency (ER) | payer SELFPAY ==
[2018-09-26 00:49] LABS: ANION GAP 6 (5-19); BLOOD UREA NITROGEN 9 mg/dL (7-20); CALCIUM 9.3 mg/dL (8.4-10.2); CARBON DIOXIDE 25 mmol/L (22-30); CHLORIDE 108 mmol/L (98-107); GLUCOSE 100 mg/dL (75-110); SODIUM 138.9 mmol/L (137-145)
--- NOTE | 2018-09-26 00:51 | RADIOLOGY REPORT (SQ) ---
CLINICAL HISTORY: Swelling and pain COMPARISON: None. 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 Joint spaces are preserved. Soft tissues are unremarkable. IMPRESSION: No acute osseous findings.
--- NOTE | 2018-09-26 01:01 | ER Document Report ---
ED Extremity Problem, Lower - General Chief Complaint: Feet Swelling Stated Complaint: SWELLING IN FEET Time Seen by Provider: 09/25/18 23:54 Mode of Arrival: Ambulatory Information source: Patient Notes: Patient is a 23-year-old female comes emergency room complaining of having swelling of bilateral feet with numbness and tingling since this morning. Patient states that she went to bed feeling normal woke up this morning with her feet swollen and her feet feeling numb. Patient denies standing on her feet for long periods of time she denies any known trauma she states she is actually relaxing and off work for the past week. She has states she has 4 kids though but has not been doing anything out of the ordinary. This is the first time this is ever transpired. She denies any other medical problems. She states that the swelling has gone down since she got up this morning and the numbness is not near as bad. She denies any increase in salt intake she denies again any overuse type of a scenario. She denies any family history of diabetes or neuropathies. Patient states she does not smoke drink or do drugs. Last menstrual period was 1 week ago. TRAVEL OUTSIDE OF THE [place] IN LAST 30 DAYS: No - HPI Patient complains to provider of: Altered sensation, Pain, Swelling Location: Foot Occurred: This morning Where: Home Onset/Duration: Sudden, Better Quality of pain: Achy, Dull, Throbbing Severity: Moderate Pain Level: 3 Context: Other - Unknown Recent injury: No Exacerbated by: Nothing Relieved by: Nothing - Related Data Allergies/Adverse Reactions: No Known Allergies Allergy (Verified 09/02/18 09:54) Past Medical History - Social History Smoking Status: Former Smoker Cigarette use (# per day): No Chew tobacco use (# tins/day): No Smoking Education Provided: No Frequency of alcohol use: None Drug Abuse: None Family History: None, Reviewed & Not Pertinent. denies: Arthritis, CAD, COPD, CVA, DM, Hyperlipidemia, Hypertension, Malignancy, Thyroid Disfunction Patient has suicidal ideation: No Patient has homicidal ideation: No Neurological Medical History: Reports: Hx Migraine Renal/ Medical History: Denies: Hx Peritoneal Dialysis - Immunizations Immunizations up to date: Yes Hx Diphtheria, Pertussis, Tetanus Vaccination: Yes - 08/27/12 Review of Systems - Review of Systems Constitutional: No symptoms reported EENT: No symptoms reported Cardiovascular: No symptoms reported Respiratory: No symptoms reported Gastrointestinal: No symptoms reported Genitourinary: No symptoms reported Female Genitourinary: No symptoms reported Musculoskeletal: See HPI, Joint pain, Joint swelling, Other - Feet swelling Skin: No symptoms reported Hematologic/Lymphatic: No symptoms reported Neurological/Psychological: No symptoms reported -: Yes All other systems reviewed and negative Physical Exam - Vital signs Vitals: Temp Pulse Resp BP Pulse Ox 98.4 F 67 16 138/78 H 100 09/25/18 20:22 09/25/18 20:22 09/25/18 20:22 09/25/18 20:22 09/25/18 20:22 Interpretation: Hypertensive - Notes Notes: PHYSICAL EXAMINATION: GENERAL: Patient is well-nourished well-developed 23-year-old female who is in no apparent distress on physical exam nation. Patient does not appear to be in a discomfort or pain. HEAD: Atraumatic, normocephalic.. NECK: Normal range of motion, supple without lymphadenopathy LUNGS: Breath sounds clear to auscultation bilaterally and equal. No wheezes rales or rhonchi. HEART: Regular rate and rhythm without murmurs Female : deferred Musculoskeletal: Examination of patient's area of concern are her bilateral feet. Examination of the feet in comparison to one another does not show any signs of swelling. Both feet are equal in size. Patient displays good dorsalis pedal pulses bilaterally with good cap refill in the nailbeds of each toe of the foot bilaterally. She also displays good posterior tibial pulses. She has good flexion extension of all toes and she has good flexion-extension and rotation at the ankle. Patient has some mild sensation loss in the lateral toes of each foot to light touch. No sign of trauma seen. Both feet are warm and normal temperature. There is no pain or discomfort on palpation at the ball of the foot. And there is no pain or discomfort with palpation and pressure applied at the heel. Rest of the vascular exam is normal with normal skin tone and colors. NEUROLOGICAL: Normal speech, normal gait. Normal sensory, motor exams PSYCH: Normal mood, normal affect. SKIN: Warm, Dry, normal turgor, no rashes or lesions noted. Course - Re-evaluation Re-evalutation: 09/26/18 01:01 Given with patient had told me about her feet being swollen and they became less swollen as she laid and elevated the feet still firmly believe that this is relationship to gravity dependent type of edema. Patient denies again any overuse or over standing to cause the swelling to occur. At this point with labs being normal her glucose is 100. Given that she has reduction in size with elevation we will go ahead and place her on support stockings and because of the numbness we will try her on some gabapentin at bedtime. We will refer her to the [facility] for follow-up. - Vital Signs Vital signs: Temp Pulse Resp BP Pulse Ox 98.4 F 67 16 138/78 H 100 09/25/18 20:22 09/25/18 20:22 09/25/18 20:22 09/25/18 20:22 09/25/18 20:22 - Laboratory Result Diagrams: 09/26/18 00:05 Laboratory results interpreted by me: 09/26/18 00:05 Chloride 108 H Discharge - Discharge Clinical Impression: Neuropathy of both feet Edema Qualifiers: Edema type: unspecified Qualified Code(s): R60.9 - Edema, unspecified Condition: Stable Disposition: HOME, SELF-CARE Instructions: Dependent Edema ([facility]), Neuropathy ([facility]) Additional Instructions: At this point your labs are normal x-rays are normal. We will try you on any medication for a nerve type of problem as well as have you use some support stockings during the day and ambulatory periods. This helps compress the feet and keep circulation and good standing. This will give you time to follow-up with your primary care provider or establish may be with the [facility] for further intervention. You can purchase a set of thigh-high or knee- high support stockings at any pharmacy or medical supply place. You might even check [facility]. Prescriptions: Gabapentin 300 mg PO HSP #15 ml Referrals: [facility] [NO LOCAL MD] - Follow up as needed
[2018-09-26 01:43] VITALS: BP 133/78
== END 2018-09-26 01:43 | disposition home or self-care (01) ==
LOC: ER 19:56
DX: G62.9 Polyneuropathy, unspecified (principal); R60.9 Edema, unspecified; Z87.891 Personal history of nicotine dependence
CPT/HCPCS: 36415; 80048; 99284

== ENCOUNTER 2019-06-09 14:07 | Outpatient (CLI) | payer SELFPAY ==
[2019-06-09] MEDS ORDERED: FLUCONAZOLE 100 MG TABLET PO SCH (14:30)
[2019-06-09] MEDS ORDERED: FLUCONAZOLE 100 MG TABLET ONE (14:33)
[2019-06-09 15:00] LABS: AMORPHOUS SEDIMENT,URINE TRACE /HPF; APPEARANCE,URINE TURBID; BILIRUBIN,URINE NEGATIVE (NEGATIVE); COLOR,URINE YELLOW; GLUCOSE, URINE NEGATIVE (NEGATIVE); KETONES,URINE NEGATIVE (NEGATIVE); LEUKOCYTE ESTERASE,URINE SMALL (NEGATIVE); NITRITE,URINE NEGATIVE (NEGATIVE); PROTEIN,URINE 30 mg/dL (NEGATIVE); URINE SPECIFIC GRAVITY 1.024
[2019-06-09 15:05] LABS: URINE AMPHETAMINES SCREEN NEGATIVE; URINE BARBITURATES SCREEN NEGATIVE; URINE BENZODIAZEPINES SCREEN NEGATIVE; URINE COCAINE SCREEN NEGATIVE; URINE MARIJUANA (THC) SCREEN NEGATIVE; URINE METHADONE SCREEN NEGATIVE; URINE PHENCYCLIDINE SCREEN NEGATIVE
== END 2019-06-09 15:11 | disposition home or self-care (01) ==
LOC: LC 14:07
PROVIDERS: ATTEND Obstetrics & Gynecology
PROC: 4A1HXCZ Monitoring of Products of Conception, Cardiac Rate, External Approach (ICD-10-PCS; principal; 2019-06-09)
DX: O98.812 Other maternal infectious and parasitic diseases complicating pregnancy, second trimester (principal); B37.9 Candidiasis, unspecified; Z3A.24 24 weeks gestation of pregnancy
CPT/HCPCS: 80307; 81001

== ENCOUNTER 2019-07-03 06:54 | Outpatient (CLI) | payer SELFPAY ==
[2019-07-03 08:22] LABS: APPEARANCE,URINE CLEAR; BILIRUBIN,URINE NEGATIVE (NEGATIVE); COLOR,URINE STRAW; GLUCOSE, URINE NEGATIVE (NEGATIVE); KETONES,URINE NEGATIVE (NEGATIVE); LEUKOCYTE ESTERASE,URINE TRACE (NEGATIVE); NITRITE,URINE NEGATIVE (NEGATIVE); PROTEIN,URINE NEGATIVE (NEGATIVE); URINE SPECIFIC GRAVITY 1.002; UROBILINOGEN,URINE NEGATIVE mg/dL (<2.0)
[2019-07-03 08:31] LABS: URINE AMPHETAMINES SCREEN NEGATIVE; URINE BARBITURATES SCREEN NEGATIVE; URINE BENZODIAZEPINES SCREEN NEGATIVE; URINE COCAINE SCREEN NEGATIVE; URINE MARIJUANA (THC) SCREEN NEGATIVE; URINE METHADONE SCREEN NEGATIVE; URINE PHENCYCLIDINE SCREEN NEGATIVE
--- NOTE | 2019-07-03 11:13 | RADIOLOGY REPORT (SQ) ---
EXAM DESCRIPTION: U/S OB LIMITED COMPLETED DATE/TIME: 07/03/2019 10:43 am REASON FOR STUDY: cervical length, comment on placenta COMPARISON: None. TECHNIQUE: Limited transabdominal grayscale ultrasound for evaluation of specific requested obstetri leander parameters. LIMITATIONS: None. FINDINGS: CERVICAL LENGTH: 4.3 cm. Closed. EDWARD: 16.7 cm. FHR: 136 beats per minute. PRESENTATION: Breech. PLACENTA: Fundal. No evidence of placenta previa or placental abruption. ANATOMY: Not assessed OTHER: No other findings. IMPRESSION: LIMITED OBSTETRICAL ULTRASOUND WITH MEASURED PARAMETERS DELINEATED ABOVE. Trimester of : Second trimester - 13 weeks 1 day to 27 weeks 6 days. TECHNICAL DOCUMENTATION: JOB ID: [id number] [employer]- All Rights Reserved Reading location - IP/workstation name: [email or web address]
== END 2019-07-03 11:33 | disposition home or self-care (01) ==
LOC: LC 06:54
PROVIDERS: ATTEND Obstetrics & Gynecology
PROC: 4A1HXCZ Monitoring of Products of Conception, Cardiac Rate, External Approach (ICD-10-PCS; principal; 2019-07-03)
DX: O46.92 Antepartum hemorrhage, unspecified, second trimester (principal); Z3A.27 27 weeks gestation of pregnancy
CPT/HCPCS: 59025; 76815; 80307; 81001

== ENCOUNTER → 2019-07-05 | Outpatient (CLI) | payer SELFPAY ==
--- NOTE | 2019-07-05 17:19 | RADIOLOGY REPORT (SQ) ---
EXAM DESCRIPTION: U/S OB 14+ TRNABD 1GES W/O DOP COMPLETED DATE/TIME: 07/05/2019 2:16 pm REASON FOR STUDY: Z34.82 ENCOUNTER FOR SUPRVSN OF NORMAL , SECOND TRIMESTER Z34.82 ENCOUNT ER FOR SUPRVSN OF NORMAL , SECOND TRI COMPARISON: None. TECHNIQUE: Static and Dynamic grayscale imaging performed of gravid uterus using transabdominal appr oach. Additional selected color Doppler and spectral images recorded. All stored on PACS. LIMITATIONS: None. FINDINGS: FETUSES SEEN:1 EGA: 27 week 3 day. Calculated using BPD,FL,HC,AC documented on images. Clinical dates 28 week 1 day . PRIYA: 10/01/2019. EFW: 1,118 grams PERCENTILE: 42%. EDWARD: 16.3 cm. PLACENTA: Posterior. GRADE: I PRESENTATION: Breech. ANATOMY: HEART RATE: 149 beats per minute. FOUR CHAMBER HEART: Visualized. THREE VESSEL CORD: Yes. CORD INSERTION: Visualized. KIDNEYS AND BLADDER: Visualized. Appear normal. STOMACH: Visualized. Appears normal. SPINE: Normal as visualized. BRAIN AND LATERAL VENTRICLES: Visualized. Appear normal. OTHER: No other significant finding. MATERNAL ADNEXA: Maternal ovaries not visualized. CERVICAL LENGTH: 3.7 cm. Closed. OTHER: No other significant finding. IMPRESSION: LIVING INTRAUTERINE . ESTIMATED GESTATIONAL AGE 27 WEEK 3 DAY. NO VISUALIZED ANOMALIES. Trimester of : Second trimester - 13 weeks 1 day to 27 weeks 6 days. TECHNICAL DOCUMENTATION: JOB ID: [id number] [employer]- All Rights Reserved Reading location - IP/workstation name: [email or web address]
== END ==
LOC: RAD 13:11
PROVIDERS: ATTEND Midwife
DX: Z34.82 Encounter for supervision of other normal pregnancy, second trimester (principal)
CPT/HCPCS: 76805

== ENCOUNTER 2019-09-02 16:56 | Outpatient (CLI) | payer MEDICAID ==
[2019-09-02 17:27] LABS: APPEARANCE,URINE SLIGHTLY-CLOUDY; BILIRUBIN,URINE NEGATIVE (NEGATIVE); COLOR,URINE YELLOW; GLUCOSE, URINE NEGATIVE (NEGATIVE); KETONES,URINE TRACE mg/dL (NEGATIVE); LEUKOCYTE ESTERASE,URINE MODERATE (NEGATIVE); NITRITE,URINE NEGATIVE (NEGATIVE); PROTEIN,URINE 30 mg/dL (NEGATIVE); URINE SPECIFIC GRAVITY 1.025
[2019-09-02 17:37] LABS: URINE AMPHETAMINES SCREEN NEGATIVE; URINE BARBITURATES SCREEN NEGATIVE; URINE BENZODIAZEPINES SCREEN NEGATIVE; URINE COCAINE SCREEN NEGATIVE; URINE MARIJUANA (THC) SCREEN NEGATIVE; URINE METHADONE SCREEN NEGATIVE; URINE PHENCYCLIDINE SCREEN NEGATIVE
[2019-09-02] MEDS ORDERED: HYDROXYZINE PAMOATE 50 MG CAPSULE ONE (18:13)
--- NOTE | 2019-09-02 18:54 | Non Stress Test Report ---
Non Stress Test Datetime Report Generated by CPN: 09/02/2019 18:54 DEMOGRAPHIC EGA NST: 35.3 VITAL SIGNS Temperature - NST: 98.7 Pulse - NST: 76 RESP - NST: 16 NBPSYS NST: 129 NBPDIA NST: 74 MONITORING Monitor Explained: Monitor Explained; Test Explained; Patient Verbalized Understanding Time on Monitor: 09/02/2019 17:19 Time off Monitor: 09/02/2019 18:18 NST Duration: 59 NST INTERVENTIONS NST Interventions: PO Hydration Physician Notified NST: Dr. Luis BABY A: [id number] BABY A Movement : Present Contraction Frequency : irregular FHR Baseline : 140 Accelerations : 15X15 Decelerations : None Variability : Moderate 6-25bpm NST Review: Meets Criteria for Reactive NST NST Review and Verified By : STEPHEN Boles Results: Reactive NST REPORT Report Trigger: Send Report
[2019-09-02] MEDS ORDERED: HYDROXYZINE PAMOATE 50 MG CAPSULE PO ONE (19:10)
== END 2019-09-02 19:02 | disposition home or self-care (01) ==
LOC: LC 16:56
PROVIDERS: ATTEND Obstetrics & Gynecology
PROC: 4A1HXCZ Monitoring of Products of Conception, Cardiac Rate, External Approach (ICD-10-PCS; principal; 2019-09-02)
DX: O47.03 False labor before 37 completed weeks of gestation, third trimester (principal); Z3A.35 35 weeks gestation of pregnancy
CPT/HCPCS: 59025; 81001; 80307; 84112; J3490

== ENCOUNTER 2019-09-18 16:34 | Inpatient (IN) | payer MEDICAID ==
[2019-09-18 17:24] LABS: HEMOGLOBIN 10.6 g/dL (12.0-15.5); MEAN CORPUSCULAR HEMOGLOBIN 28.1 pg (27.0-33.4); MEAN CORPUSCULAR HGB CONC 33.2 g/dL (32.0-36.0); MEAN CORPUSCULAR VOLUME 85 fl (80-97); PLATELET COUNT 229 10^3/uL (150-450); RED BLOOD COUNT 3.78 10^6/uL (3.72-5.28); RED CELL DISTRIBUTION WIDTH 14.5 % (11.5-14.0); WHITE BLOOD COUNT 7.4 10^3/uL (4.0-10.5)
[2019-09-18 17:38] LABS: APPEARANCE,URINE CLEAR; BILIRUBIN,URINE NEGATIVE (NEGATIVE); COLOR,URINE STRAW; GLUCOSE, URINE NEGATIVE (NEGATIVE); KETONES,URINE NEGATIVE (NEGATIVE); LEUKOCYTE ESTERASE,URINE LARGE (NEGATIVE); NITRITE,URINE NEGATIVE (NEGATIVE); PROTEIN,URINE NEGATIVE (NEGATIVE); URINE SPECIFIC GRAVITY 1.006; UROBILINOGEN,URINE NEGATIVE mg/dL (<2.0)
[2019-09-18 17:45] LABS: ALBUMIN 3.2 g/dL (3.5-5.0); ALKALINE PHOSPHATASE 162 U/L (38-126); ANION GAP 10 (5-19); ASPARTATE AMINO TRANSFERASE 21 U/L (14-36); BILIRUBIN,DIRECT 0.1 mg/dL (0.0-0.4); BILIRUBIN,TOTAL 0.3 mg/dL (0.2-1.3); BLOOD UREA NITROGEN 5 mg/dL (7-20); CALCIUM 9.1 mg/dL (8.4-10.2); CARBON DIOXIDE 21 mmol/L (22-30); CHLORIDE 106 mmol/L (98-107); GLUCOSE 77 mg/dL (75-110); POTASSIUM 3.7 mmol/L (3.6-5.0); TOTAL PROTEIN 6.2 g/dL (6.3-8.2); URIC ACID 5.5 mg/dL (2.5-6.2)
[2019-09-18 17:53] LABS: URINE AMPHETAMINES SCREEN NEGATIVE; URINE BARBITURATES SCREEN NEGATIVE; URINE BENZODIAZEPINES SCREEN NEGATIVE; URINE COCAINE SCREEN NEGATIVE; URINE MARIJUANA (THC) SCREEN NEGATIVE; URINE METHADONE SCREEN NEGATIVE; URINE PHENCYCLIDINE SCREEN NEGATIVE
[2019-09-18 18:02] LABS: UR PRO/CREAT RATIO RESULT 0.6 mg/mg (0.0-0.2); URINE CREATININE 35.7 mg/dL (16-327); URINE PROTEIN 22.7 mg/dL (<12)
[2019-09-18] MEDS ORDERED: ACETAMINOPHEN 325 MG TABLET PO ONE (18:36)
[2019-09-18] MEDS ORDERED: ACETAMINOPHEN 325 MG TABLET ONE (18:51)
--- NOTE | 2019-09-18 18:57 | Non Stress Test Report ---
Non Stress Test Datetime Report Generated by CPN: 09/18/2019 18:57 DEMOGRAPHIC EGA NST: 37.5 INDICATION Indication for Study (NST) Other: POSS. PRE E VITAL SIGNS Temperature - NST: 98.5 Pulse - NST: 86 RESP - NST: 16 NBPSYS NST: 143 NBPDIA NST: 83 MONITORING Monitor Explained: Monitor Explained; Test Explained; Patient Verbalized Understanding Time on Monitor: 09/18/2019 17:21 Time off Monitor: 09/18/2019 18:46 NST Duration: 85 NST INTERVENTIONS NST Interventions: IV Fluids Physician Notified NST: DR MCLEOD BABY A: [id number] BABY A Movement : Present Contraction Frequency : IRREGULAR FHR Baseline : 135 Accelerations : 15X15 Decelerations : None Variability : Moderate 6-25bpm NST Review: Meets Criteria for Reactive NST NST Review and Verified By : Nickie Jones RN NST Results: Reactive NST REPORT Report Trigger: Send Report
[2019-09-18] MEDS ORDERED: FOSFOMYCIN TROMETHAMINE 3 GM PACKET PO ONE (20:30)
--- NOTE | 2019-09-19 06:57 | Admission Physical ---
Datetime Report Generated by CPN: 09/19/2019 06:57 CURRENT ADMISSION Chief Complaint: Sent from OB Office for Evaluation and Treatment - Please Specify Chief Complaint Other: Preeclampsia evaluation Admit Impression : Observation/Evaluation; Medical Complication Admit Impression- Other: Elevated B/P Admit Plan: Observation/Evaluation ALLERGIES Medication Allergies: No Medication Allergies: No Known Allergies (07/03/2019) Latex: Latex Allergies Food Allergies: None Environmental Allergies: None OBSTETRICAL HISTORY EDC: 10/04/2019 00:00 : 5 Para: 4 Term: 4 : 0 SAB: 0 IAB: 0 Ectopic: 0 Livin Cesareans: 0 VBACs: 0 Multiple Births: 0 Gestational Diabetes: No Rh Sensitization: No Incompetent Cervix: No ZOIE: No Infertility: No ART Treatment: No Uterine Anomaly: No IUGR: No Hx Previous C/S: No Macrosomia: No Hx Loss/Stillborn: No PIH: No Hx : No Placenta Previa/Abruption: No Depression/PP Depression: No PTL/PROM: No Post Hemorrhage: No Current Procedures: Ultrasound Obstetrical History Comments: G1- 2011, G2- 2013, G3- 2014, G42016, G5- Current SEE RECORDS Alcohol: No Marijuana : No Cocaine: No Other Illicit Drugs: No Cigarettes: Never Smoker. 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 Heart Disease: No Hosp/Surgery: Yes Autoimmune Disorder: No Anesthetic Complications: Unknown Kidney Disease: No Abnormal Pap Smear: No Neuro/Epilepsy: No Psychiatric Disorders: No Other Medical Diseases: Yes Hepatitis/Liver Disease: No Significant Family History: No Varicosities/Phlebitis: No Trauma/Violence : No Thyroid Dysfunction: No Medical History Comments: Childbirth, migraines INFECTIOUS HISTORY Gonorrhea: No Genital Herpes: No Chlamydia: No Tuberculosis: No Syphilis: No Hepatitis: No HIV/AIDS Exposure: No Rash or Viral Illness: No HPV: No PHYSICAL EXAM General: Normal HEENT: Normal Neurologic: Normal Thyroid: Normal Heart: Normal Lungs: Normal Breast: Normal Back: Normal Abdomen: Normal Genitourinary Exam: Normal Extremities: Normal DTRs: Normal Pelvic Type: Adequate Vital Signs: Reviewed FETUS A EGA: 37.5 Monitoring: External US Admit Comment: Elevated b/p in office. Elevated b/p here. On chart review, she has had elevated B/P back in june. gHTN vs new onset preE?? Initally planned outpatient 24 hr urine after treatment of UTI but then she had one severely elevated b/p. WIll plan inpatient 24 hour urine after treatment for UTI. Serial b/p during this time. BARILLAS improved with tylenol -Exam negative. DTR negative and no clonus -VS Q 1 hr -PIH labs normal but P:C 0.6 however, large leuk esterace and bacteria. Will treat this with fosfomycin and begin a 24 hr urine collection. Hx of b/p elevated early pregancy but no baseline P:C or 24 hr urine protein. -NST Cat 1, Continue BID -Call correspondence analyst provider for elevated b/p > 160 mmHG systolic or diastolic > 110 mm Hg. -If develops severe features or second severe pressure then will plan IOL PLANS FOR LABOR AND DELIVERY Labor and Delivery: None Pain Management: Natural Feeding Preference: Both Benefit of Breast Feed Discussed: Yes Circumcision: N/A INFORMED CONSENT Informed Consent Obtained: Vaginal Delivery; Risks, Benefits and Alternatives Discussed Signature: with User ID: Gonzales : with User ID: Gonzales
[2019-09-19] MEDS ORDERED: PENICILLIN G-K 5 MILLION UNIT VIAL ONE ×3 (11:20→19:02)
[2019-09-19] MEDS ORDERED: OXYTOCIN/NORMAL SALINE 20 UNIT/1,000 ML RTUINJ IV PRN ×2 (11:57→19:52)
[2019-09-19] MEDS ORDERED: OXYTOCIN/NORMAL SALINE 0 UNIT/0 ML RTUINJ ONE (12:06)
[2019-09-19] MEDS ORDERED: RINGERS SOLUTION,LACTATED 1,000 ML IV PRN (12:12)
[2019-09-19] MEDS ORDERED: RINGERS SOLUTION,LACTATED 1,000 ML IV ONE (12:12)
[2019-09-19 17:45] LABS: ABSOLUTE LYMPHOCYTES (AUTO) 1.1 10^3/uL (0.5-4.7); ABSOLUTE MONOCYTES (AUTO) 0.5 10^3/uL (0.1-1.4); ABSOLUTE NEUT (AUTO) 5.8 10^3/uL (1.7-8.2); BASOPHILS % (AUTO) 0.1 % (0-2); EOSINOPHILS % (AUTO) 0.6 % (0-6); HEMATOCRIT 33.9 % (36.0-47.0); HEMOGLOBIN 11.1 g/dL (12.0-15.5); LYMPHOCYTES % (AUTO) 14.9 % (13-45); MEAN CORPUSCULAR HGB CONC 32.8 g/dL (32.0-36.0); MEAN CORPUSCULAR VOLUME 85 fl (80-97); MONOCYTES % (AUTO) 7.2 % (3-13); PLATELET COUNT 238 10^3/uL (150-450); RED BLOOD COUNT 3.98 10^6/uL (3.72-5.28); RED CELL DISTRIBUTION WIDTH 14.8 % (11.5-14.0); SEGMENTED NEUTROPHILS % (AUTO) 77.2 % (42-78); TOTAL CELLS COUNTED % (AUTO) 100 %; WHITE BLOOD COUNT 7.5 10^3/uL (4.0-10.5)
[2019-09-19] MEDS ORDERED: OXYTOCIN 10 UNIT/ML VIAL ONE (19:04)
[2019-09-19] MEDS ORDERED: MISOPROSTOL 0.2 MG TABLET ONE (19:04)
[2019-09-19] MEDS ORDERED: OXYTOCIN/NORMAL SALINE 20 UNIT/1,000 ML RTUINJ ONE (19:04)
[2019-09-19] MEDS ORDERED: LIDOCAINE 1% INJ-PF (10 MG/ML) 30 ML SDV ONE (19:04)
[2019-09-19] MEDS ORDERED: ACETAMINOPHEN WITH CODEINE #3 TABLET PO PRN ×2 (19:52)
[2019-09-19] MEDS ORDERED: DIBUCAINE 1% OINTMENT 56 GM TP PRN (19:52)
[2019-09-19] MEDS ORDERED: DIPH/PERTUSS(ACELL)/TETANUS VAC/PF 0.5 ML SYR (>=10YO) IM PRN (19:52)
[2019-09-19] MEDS ORDERED: ZOLPIDEM TARTRATE 5 MG TABLET PO PRN (19:52)
[2019-09-19] MEDS ORDERED: BENZOCAINE/MENTHOL AEROSOL SPRAY 56 ML TOP PRN (19:52)
[2019-09-19] MEDS ORDERED: IBUPROFEN 800 MG TABLET ONE (20:53)
[2019-09-19] MEDS: IBUPROFEN 800 MG TABLET PO SCH (21:04)
--- NOTE | 2019-09-19 22:06 | Warning Signs in Babies ---
VOD Warning Signs Datetime Report Generated by [facility]: 09/19/2019 22:05 VOD#[id number] -Warning Signs in Babies: Viewed with Parent(s)/Family (09/19/2019 22:04:Berny Friedman RN)
--- NOTE | 2019-09-19 22:11 | Delivery Summary ---
Del Sum A-C Datetime Report Generated by CPN: 09/19/2019 22:11 DELIVERY PERSONNEL DELIVERY PERSONNEL: [id number] Delivery Doctor:: Mel Sevilla MD Labor and Delivery Nurse:: Berny Friedman RNsteam box operator Nurse:: Anisha Rousseau RN Nursery Nurse:: Victoria White RN Fisheries Director/METAL CLEANER: Kerrie Aviles, ST MATERNAL INFORMATION Delivery Anesthesia: None Medications After Delivery: Pitocin Drip 20 Units/1000ml NSS; Cytotec 1000mcg Per Rectum/Vagina Delivery QBL: 50 Delivery QBL Comment: 50 ml Maternal Complications: None Provider Comments: of a viable female at 1932 w/OA presentation; APGARS pending ; no lacs LABOR SUMMARY EDC: 10/04/2019 00:00 No. Babies in Womb: 1 Attempted: No Labor Anesthesia: None LABOR INFORMATION Reason for Induction: Pre-Eclampsia Onset of Labor: 09/19/2019 17:37 Complete Dilatation: 09/19/2019 19:30 Group B Beta Strep: positive Antibiotics # of Doses: 3 Antibiotics Time of Last Dose: 1925 Name of Antibiotic Given: Penicillin Steroids Given: None Reason Steroids Not Administered: Not Applicable MEMBRANES Membranes Rupture Method: Artificial Rupture of Membranes: 09/19/2019 17:37 Length of Rupture (hr): 1.92 Amniotic Fluid Color: Clear Amniotic Fluid Amount: Small Amniotic Fluid Odor: Normal STAGES OF LABOR Stage 1 hr: 1 Stage 1 min: 53 Stage 2 hr: 0 Stage 2 min: 2 Stage 3 hr: 0 Stage 3 min: 4 Total Time in Labor hr: 1 Total Time in Labor min: 59 VAGINAL DELIVERY Episiotomy: None Laceration #1: None Laceration Extension #1: N/A Laceration Repair: Not Applicable Sponge Count Correct: Yes Sharps Count Correct: Yes CSECTION DELIVERY Primary Indication: N/A Secondary Indication: N/A CSection Incidence: N/A Labor: N/A Elective: N/A CSection Incision: N/A BABY A INFORMATION Delivery Date/Time: 09/19/2019 19:32 Method of Delivery: Vaginal Born in Route : No : N/A Forceps: N/A Vacuum Extraction: N/A Shoulder Dystocia : No PRESENTATION/POSITION BABY A Presentation: Cephalic Cephalic Presentation: Vertex Vertex Position: Occiput Anterior Breech Presentation: N/A PLACENTA INFORMATION BABY A Placenta Delivery Time : 09/19/2019 19:36 Placenta Method of Delivery: Spontaneous Placenta Status: Delivered SCORES BABY A Heart Rate 1 min: >100 bpm Resp Effort 1 min: Good Cry Reflex Irritability 1 min: Cough or Sneeze or Pulls Away Muscle Tone 1 min: Active Motion Color 1 min: Blue/Pale Resuscitation Effort 1 min: Tactile Stimulation SCORE 1 MIN: 8 Heart Rate 5 min: >100 bpm Resp Effort 5 min: Good Cry Reflex Irritability 5 min: Cough or Sneeze or Pulls Away Muscle Tone 5 min: Active Motion Color 5 min: Body [place], Extremities Blue SCORE 5 MIN: 9 INFANT INFORMATION BABY A Gestational Age at Delivery: 37.6 Gestational Status: Early Term- 37- 38.6 Weeks Infant Outcome : Liveborn Infant Condition : Stable Infant Sex: Female IDENTIFICATION BABY A Verification Date/Time: 09/19/2019 20:03 ID Band Number: [id number] Mother's Name Verified: Yes Infant RN Verifying : , RN and CSera, RN WEIGHT/LENGTH BABY A Birthweight (gm): 2635 Weight (lb): 5 Weight (oz): 13 Length (in): 19.25 Infant Length (cm): 48.90 CORD INFORMATION BABY A No. Cord Vessels: 3 Nuchal Cord : N/A Cord Blood Taken: Yes-For Eval (Mom's Blood Type - or O+) Suction: Mouth ASSESSMENT BABY A Skin to Skin: Yes Skin to Skin Time (min): 60 BABY B INFORMATION : N/A SIGNATURES Signature: with User ID: [email or web address]
[2019-09-20] MEDS: IBUPROFEN 800 MG TABLET PO SCH ×3 (06:04→23:14)
[2019-09-20 06:34] LABS: HEMATOCRIT 29.5 % (36.0-47.0); HEMOGLOBIN 9.9 g/dL (12.0-15.5); MEAN CORPUSCULAR HEMOGLOBIN 28.6 pg (27.0-33.4); MEAN CORPUSCULAR HGB CONC 33.7 g/dL (32.0-36.0); MEAN CORPUSCULAR VOLUME 85 fl (80-97); PLATELET COUNT 214 10^3/uL (150-450); RED BLOOD COUNT 3.46 10^6/uL (3.72-5.28); RED CELL DISTRIBUTION WIDTH 14.4 % (11.5-14.0); WHITE BLOOD COUNT 10.4 10^3/uL (4.0-10.5)
[2019-09-20] MEDS ORDERED: IRON SUCROSE COMPLEX INJ/PF 100 MG/5 ML SDV IV ONE (09:00)
[2019-09-20] MEDS: SENNOSIDES/DOCUSATE 8.6-50 MG 1 EACH TABLET PO SCH (09:10)
[2019-09-20] MEDS: DOCUSATE SODIUM 100 MG CAPSULE PO SCH ×2 (09:10→17:17)
[2019-09-20] MEDS: PRENATAL VITAMIN W DHA CAPSULE PO SCH (09:10)
[2019-09-20] MEDS: FERROUS SULFATE 325 MG TABLET PO SCH ×2 (09:12→17:17)
--- NOTE | 2019-09-20 10:26 | PDOC PROGRESS REPORT ---
Subjective-OB Progress Note for:: 09/20/19 Physical Exam (OB) Vital Signs: Temp Pulse Resp BP Pulse Ox 98.3 F 74 16 132/75 H 100 09/20/19 07:50 09/20/19 07:50 09/20/19 07:50 09/20/19 07:50 09/20/19 07:50 Intake & Output 09/19/19 09/20/19 09/21/19 06:59 06:59 06:59 Weight 108.2 kg - PIH/Pre-Eclampsia Clonus: Negative Headache: Absent Epigastric Pain: No Visual Changes: No - Lochia Lochia Amount: Small 10-25 ml Lochia Color: Rubra/Red - Abdomen Description: Soft Hernia Present: No Bowel Sounds: Normoactive Flatus Presence: Absent Stool: No Fundal Description: Firm Fundal Height: u/u - u/2 Objective-Diagnostic Laboratory: 09/20/19 06:10 09/18/19 17:15 09/19/19 09/19/19 09/20/19 17:22 17:22 06:10 WBC 7.5 10.4 RBC 3.98 3.46 L Hgb 11.1 L 9.9 L Hct 33.9 L 29.5 L MCV 85 85 MCH 28.0 28.6 MCHC 32.8 33.7 RDW 14.8 H 14.4 H Plt Count 238 214 Seg Neutrophils % 77.2 Blood Type O POSITIVE Antibody Screen POSITIVE
[2019-09-21] MEDS: IBUPROFEN 800 MG TABLET PO SCH ×2 (07:43→14:48)
[2019-09-21 08:31] VITALS: BP 134/77
--- NOTE | 2019-09-21 09:04 | PDOC PROGRESS REPORT ---
Subjective-OB Progress Note for:: 09/21/19 Subjective: Doing well, no c/o, talking on phone, bottle feeding, ready to go home, feels good, scant bleeding Physical Exam (OB) Vital Signs: Temp Pulse Resp BP Pulse Ox 97.9 F 76 16 134/77 H 99 09/21/19 07:47 09/21/19 07:47 09/21/19 07:47 09/21/19 07:47 09/21/19 07:47 Intake & Output 09/20/19 09/21/19 09/22/19 06:59 06:59 06:59 Weight 101.3 kg - PIH/Pre-Eclampsia Clonus: Negative Headache: Absent Epigastric Pain: No Visual Changes: No - Lochia Lochia Amount: Scant < 10 ml Lochia Color: Rubra/Red - Abdomen Description: Soft, Round Hernia Present: No Fundal Description: Firm, Midline Fundal Height: u/u - u/2 Objective-Diagnostic Laboratory: 09/20/19 06:10 09/18/19 17:15 Assessment and Plan(PN) - Assessment and Plan (1) Mild pre-eclampsia affecting fifth Is this a current diagnosis for this admission?: Yes (2) Anemia Qualifiers: Anemia type: iron deficiency Is this a current diagnosis for this admission?: Yes (3) Positive GBS test Is this a current diagnosis for this admission?: Yes (4) Delivery normal Is this a current diagnosis for this admission?: Yes (5) Term Is this a current diagnosis for this admission?: Yes - Time Spent with Patient Time with patient: Less than 15 minutes Medications reviewed and adjusted accordingly: Yes - Disposition Anticipated Discharge: Home Within: within 24 hours
--- NOTE | 2019-09-21 09:09 | PDOC DISCHARGE SUMMARY ---
Impression - Admit/DC Date/PCP Admission Date/Primary Care Provider: 09/18/19 19:10 DEANGELO BLANK CNM Discharge Date: 09/21/19 - Discharge Diagnosis (1) Mild pre-eclampsia affecting fifth Is this a current diagnosis for this admission?: Yes (2) Anemia Is this a current diagnosis for this admission?: Yes (3) Positive GBS test Is this a current diagnosis for this admission?: Yes (4) Delivery normal Is this a current diagnosis for this admission?: Yes (5) Term Is this a current diagnosis for this admission?: Yes - Additional Information Resuscitation Status: Full Code Discharge Diet: As Tolerated, Regular Discharge Activity: Activity As Tolerated, No Lifting Over 10 Pounds, No Lifting/Push/Pulling, Pelvic Rest Referrals: DEANGELO BLANK CNM [Primary Care Provider] - ([facility] 1 week) BARB CHEN MD [ACTIVE STAFF] - ([facility] 1 week) Home Medications: Prenat 115/Iron Fum/Folic/Dss [ 19 Tablet] 1 tab PO DAILY 07/03/19 Ferrous Sulfate [Feosol 325 mg Tablet] 325 mg PO BID tablet 09/21/19 HPI Gestational Age: 37.6 Reason(s) for Admission: Induction of Labor, PIH, Group B Strep Positive Admission Note: mild pre-eclampsia Procedures: NST, Ultrasound Intrapartum Procedure(s): Spontaneous Vaginal Delivery - female, 05/18, wt 5-13 Hospital Course Hospital Course: routine Results Laboratory Results: WBC 10.4 10^3/uL (4.0-10.5) 09/20/19 06:10 RBC 3.46 10^6/uL (3.72-5.28) L 09/20/19 06:10 Hgb 9.9 g/dL (12.0-15.5) L 09/20/19 06:10 Hct 29.5 % (36.0-47.0) L 09/20/19 06:10 MCV 85 fl (80-97) 09/20/19 06:10 MCH 28.6 pg (27.0-33.4) 09/20/19 06:10 MCHC 33.7 g/dL (32.0-36.0) 09/20/19 06:10 RDW 14.4 % (11.5-14.0) H 09/20/19 06:10 Plt Count 214 10^3/uL (150-450) 09/20/19 06:10 Lymph % (Auto) 14.9 % (13-45) 09/19/19 17:22 [place] % (Auto) 7.2 % (3-13) 09/19/19 17:22 Eos % (Auto) 0.6 % (0-6) 09/19/19 17:22 Baso % (Auto) 0.1 % (0-2) 09/19/19 17:22 Absolute Neuts (auto) 5.8 10^3/uL (1.7-8.2) 09/19/19 17:22 Absolute Lymphs (auto) 1.1 10^3/uL (0.5-4.7) 09/19/19 17:22 Absolute Monos (auto) 0.5 10^3/uL (0.1-1.4) 09/19/19 17:22 Absolute Eos (auto) 0.0 10^3/uL (0.0-0.6) 09/19/19 17:22 Absolute Basos (auto) 0.0 10^3/uL (0.0-0.2) 09/19/19 17:22 Seg Neutrophils % 77.2 % (42-78) 09/19/19 17:22 Sodium 136.8 mmol/L (137-145) L 09/18/19 17:15 Potassium 3.7 mmol/L (3.6-5.0) 09/18/19 17:15 Chloride 106 mmol/L (98-107) 09/18/19 17:15 Carbon Dioxide 21 mmol/L (22-30) L 09/18/19 17:15 Anion Gap 10 (5-19) 09/18/19 17:15 BUN 5 mg/dL (7-20) L 09/18/19 17:15 Creatinine 0.75 mg/dL (0.52-1.25) 09/18/19 17:15 Est GFR ( Amer) > 60 (>60) 09/18/19 17:15 Est GFR (MDRD) Non-Af > 60 (>60) 09/18/19 17:15 Glucose 77 mg/dL (75-110) 09/18/19 17:15 Uric Acid 5.5 mg/dL (2.5-6.2) 09/18/19 17:15 Calcium 9.1 mg/dL (8.4-10.2) 09/18/19 17:15 Total Bilirubin 0.3 mg/dL (0.2-1.3) 09/18/19 17:15 Direct Bilirubin 0.1 mg/dL (0.0-0.4) 09/18/19 17:15 Neonat Total Bilirubin Not Reportable 09/18/19 17:15 Neonat Direct Bilirubin Not Reportable 09/18/19 17:15 Neonat Indirect Bili Not Reportable 09/18/19 17:15 AST 21 U/L (14-36) 09/18/19 17:15 ALT 14 U/L (<35) 09/18/19 17:15 Alkaline Phosphatase 162 U/L (38-126) H 09/18/19 17:15 Lactate Dehydrogenase 152 U/L (120-246) 09/18/19 17:15 Total Protein 6.2 g/dL (6.3-8.2) L 09/18/19 17:15 Albumin 3.2 g/dL (3.5-5.0) L 09/18/19 17:15 Urine Color STRAW 09/18/19 16:50 Urine Appearance CLEAR 09/18/19 16:50 Urine pH 8.0 (5.0-9.0) 09/18/19 16:50 Ur Specific [place] 1.006 09/18/19 16:50 Urine Protein NEGATIVE mg/dL (NEGATIVE) 09/18/19 16:50 Urine Glucose (UA) NEGATIVE mg/dL (NEGATIVE) 09/18/19 16:50 Urine Ketones NEGATIVE mg/dL (NEGATIVE) 09/18/19 16:50 Urine Blood NEGATIVE (NEGATIVE) 09/18/19 16:50 Urine Nitrite NEGATIVE (NEGATIVE) 09/18/19 16:50 Urine Bilirubin NEGATIVE (NEGATIVE) 09/18/19 16:50 Urine Urobilinogen NEGATIVE mg/dL (<2.0) 09/18/19 16:50 Ur Leukocyte Esterase LARGE (NEGATIVE) H 09/18/19 16:50 Urine WBC (Auto) 1 /HPF 09/18/19 16:50 Urine RBC (Auto) 0 /HPF 09/18/19 16:50 Urine Bacteria (Auto) TRACE /HPF 09/18/19 16:50 Squamous Epi Cells Auto 2 /HPF 09/18/19 16:50 Urine Creatinine 35.7 mg/dL (16-327) 09/18/19 16:50 Protein/Creatinin Ratio 0.6 mg/mg (0.0-0.2) H 09/18/19 16:50 Urine Total Protein 22.7 mg/dL (<12) H 09/18/19 16:50 Urine Ascorbic Acid NEGATIVE (NEGATIVE) 09/18/19 16:50 Urine Opiates Screen NEGATIVE 09/18/19 16:50 Urine Methadone Screen NEGATIVE 09/18/19 16:50 Ur Barbiturates Screen NEGATIVE 09/18/19 16:50 Ur Phencyclidine Scrn NEGATIVE 09/18/19 16:50 Ur Amphetamines Screen NEGATIVE 09/18/19 16:50 U Benzodiazepines Scrn NEGATIVE 09/18/19 16:50 Urine Cocaine Screen NEGATIVE 09/18/19 16:50 U Marijuana (THC) Screen NEGATIVE 09/18/19 16:50 RPR NONREACTIVE (NONREACTIVE) 09/19/19 17:22 Blood Type O POSITIVE 09/19/19 17:22 Antibody Screen POSITIVE 09/19/19 17:22 Antibody Identification Anti-E 09/19/19 17:22 Antigen Identification E Antigen - NEGATIVE 09/19/19 17:22 Plan Health Concerns: blood pressure Plan of Treatment: RTC 1 week, reviewed S&S to report Goals: home with baby, no complications Time Spent: Less than 30 Minutes
[2019-09-21] MEDS: PRENATAL VITAMIN W DHA CAPSULE PO SCH (10:12)
[2019-09-21] MEDS: DOCUSATE SODIUM 100 MG CAPSULE PO SCH (10:12)
[2019-09-21] MEDS: SENNOSIDES/DOCUSATE 8.6-50 MG 1 EACH TABLET PO SCH (10:12)
[2019-09-21] MEDS: FERROUS SULFATE 325 MG TABLET PO SCH (10:12)
== END 2019-09-21 16:45 | disposition home or self-care (01) | DRG 807 ==
LOC: LC 16:34 → LR 19:10 → 2S 09-19 22:19
PROVIDERS: ADMIT Obstetrics & Gynecology; ATTEND Obstetrics & Gynecology
PROC: 10E0XZZ Delivery of Products of Conception, External Approach (ICD-10-PCS; principal; 2019-09-19)
PROC: 10907ZC Drainage of Amniotic Fluid, Therapeutic from Products of Conception, Via Natural or Artificial Opening (ICD-10-PCS; 2019-09-20)
DX: O14.94 Unspecified pre-eclampsia, complicating childbirth (principal); Z37.0 Single live birth; O99.824 Streptococcus B carrier state complicating childbirth; O99.02 Anemia complicating childbirth; Z3A.37 37 weeks gestation of pregnancy; D50.9 Iron deficiency anemia, unspecified
CPT/HCPCS: 36415; 59025; 80053; 80307; 81001; 82570; 83615; 84156; 84550; 85025; 85027; 86592; 86850; 86870; 86900; 86901; 86902; J1756; J2540; J2590; J3490